=== PATIENT | female | born 1990 | race Caucasian/White ===

== ENCOUNTER 2019-01-14 14:25 | Emergency (ER) | payer MEDICAID, SELFPAY ==
--- NOTE | 2019-01-14 14:23 | W.ED.GENAD ---
Discharge Plan Disposition Patient Disposition: HOME Condition: Fair Discharge Details Chief Complaint: Abd Prob Clinical Impression: Abdominal pain Primary Care Provider: Mark Anthony Avery ED Provider: Nely Gillette Home Meds and New Rx's Prescriptions: New ondansetron 4 mg tablet,disintegrating 4 mg PO QID PRN (Reason: nausea and vomiting) Qty: 10 RF: 0 Continued fluticasone propionate [Flovent HFA] 120 PUFF HFA aerosol inhaler 2 puff Inhalation DAILY RF: 0 levalbuterol tartrate [Xopenex HFA] 200 PUFF HFA aerosol inhaler 2 puff Inhalation Q6H PRN PRNRF: 0 ranitidine HCl [Zantac] 150 MG tablet 150 mg PO DAILY RF: 0 PNV cmb#95-ferrous fumarate-FA [] 1 EACH tablet 1 ea PO DAILY RF: 0 Discharge Instructions Instructions: Abdominal Pain (ED) Additional Instructions: Your evaluation both here and at [facility] are reassuring. You do not have any evidence of ovarian torsion on your exam today or other acute abdominal issues. Please follow-up with primary care next week for reevaluation. May use the Zofran as prescribed to help with any recurrence of your nausea. Tylenol and/or ibuprofen as needed for discomfort. If you develop fever/chills, increased pain, inability stay hydrated or other new/worsening symptoms please seek care urgently once again Referrals: Mark Anthony Avery [Primary Care Provider] - Discharge Data Discharge Date/Time-TO BE ENTERED AT DEPARTURE: 01/14/19 16:25 Medical Decision Making Patient is a 28-year-old female presents today with chief complaint of left lower quadrant pain. She was transferred here from [facility] where she was evaluated in the emergency department. After physical exam and CT, there was concern for possible left ovarian torsion and patient requested transfer here for ultrasound and continued evaluation by [employer] SET UP OPERATOR V[employer]ICAL. Serum test was negative. No leukocytosis. Her CRP was elevated. Her CT is concerning for asymmetric enlarged left kidney. Radiologist is concerned for possible corpus luteum cyst. However, with the patient's discomfort, could not rule out possible torsion. Pain was noted in this area on pelvic exam by physician prompting their evaluation here. They did consult with [employer] OPERATOR [employer], Dr. Machado, who then recommended transfer to our emergency department for transvaginal US which they are unable ot preform at their facility. At this time, patient continues to endorse some left lower quadrant pain. When she was first evaluated in the emergency department, she was endorsing more generalized discomfort, particularly in the upper quadrants. Patient denies any change in bowel or bladder habits. She was also endorsing some right flank pain which she is not endorsing at this time. Patient's medical history is concerning for kidney stones which were not noted on CT today. LMP 12/26/18. Records from [facility] reviewed. CT reviewed by radiologist noting asymmetrically enlarged left ovary. They advised this is likely a corpus luteum cyst has possibly associated with hydrosalpinx. In the setting of pain, advise correlation with transvaginal pelvic ultrasound to exclude possibility of torsion. Exam performed by Dr. Hopson was concerning for tenderness in the left lower quadrant and right lower quadrant. Ears is without findings to suggest infection. She does have trace amount of blood. Negative nitrites negative leukocyte esterase. Lipase is 83. Chemistry, no electrolyte abnormalities. Amylase 31. CRP is 2.6. White count is normal, patient is not anemic. US reviewed by radiologist: Transabdominal and transvaginal exams were performed. The uterus measures 10 x 4.9 x 5.7 cm. A scar is seen anteriorly in the lower uterine segment. There are no fibroids visualized. The endometrial stripe appears homogeneous and measures 14 mm in thickness. The ovaries are normal in size. The left ovary shows a dominant follicle measuring 1.5 cm. There is no free fluid. There is no evidence of ovarian torsion. The kidneys are unremarkable. IMPRESSION: Pelvic ultrasound is within normal limits. Discussed findings with the patient. Advised that there is no evidence of torsion. Discussed findings with Dr. Lennon who was consult for the patient while at [facility]. Patient is taking p.o. intake well at this time. She appears to be resting comfortably. Plan to discharge home with Yudith to help with symptom medic management. Advised that this may be a viral illness but overall, unclear why the patient is having extremely diffuse and migratory abdominal pain for the past 3 days. Advise close follow-up with primary care. She was given strict return precautions and will return with any new or worsening symptoms. All questions and concerns were addressed and she is in agreement this plan. HPI General Mode of arrival: EMS. Date/Time Provider Initiated Documentation: 01/14/19 14:33. Limitations to Documentation: no limitations. Information obtained by: patient, family, RN/MD (report from Dr. Hopson and Dr. Lennon), EMS and RN notes reviewed. History of Present Illness 28 year old F presents to the emergency department with the chief complaint of abdominal pain, described as moderate, Quality is described as stabbing, and is localized to the abdomen. Patient reports no radiation. Patient started experiencing this day(s) and it has been constant. No relieving factors improve symptom(s), No exacerbating factors reported . Patient notes nausea/vomiting (nausea, no vomiting. Patient currently requesting food); denies chest pain, cough, fever/chills, headaches, loss of appetite, rash and shortness of breath. Patient did receive the following treatments prior to arrival, none Related Data Home Medications Medication Instructions Recorded Confirmed fluticasone propionate [Flovent 2 puff INHALATION DAILY inh 03/18/15 07/08/17 HFA] levalbuterol tartrate [Xopenex HFA] 2 puff INHALATION Q6H PRN PRN inh 03/18/15 07/08/17 PNV cmb#95-ferrous fumarate-FA 1 ea PO DAILY 07/08/17 07/08/17 [] ranitidine HCl [Zantac] 150 mg PO DAILY 07/08/17 07/08/17 ondansetron 4 mg PO QID PRN #10 tab 01/14/19 Previous Rx's Medication Instructions Recorded fluticasone propionate [Flovent 2 puff INHALATION DAILY inh 03/18/15 HFA] levalbuterol tartrate [Xopenex HFA] 2 puff INHALATION Q6H PRN PRN inh 03/18/15 ondansetron 4 mg PO QID PRN #10 tab 01/14/19 Allergies Allergy/AdvReac Type Severity Reaction Status Date / Time latex Allergy Intermediate Swelling/Ed Unverified 07/08/17 18:51 tona raspberry Allergy Unknown Anaphylaxsi Unverified 07/08/17 18:51 s No Known Drug Allergies Allergy Unverified 07/08/17 19:22 Review of Systems Constitutional Reports as per HPI, Denies chills, Denies fatigue, Denies fever(s) and Denies headache(s) ENT Denies headache(s) Cardiovascular Reports as per HPI, Denies chest pain and Denies dyspnea Respiratory Reports as per HPI, Denies cough and Denies dyspnea Gastrointestinal Reports as per HPI Musculoskeletal Reports as per HPI and Denies back pain Integumentary/Breasts Reports as per HPI and Denies rash Neurologic Reports as per HPI and Denies headache(s) Endocrine Denies fatigue PFSH Medical History Asthma BMI 36.0-36.9,adult Depression Surgical History Arthroplasty of knee Family History Grandfather Personal history of malignant neoplasm Grandmother Diabetes Social History Smoking/Tobacco Use Status: Never Drug use: Never Do you feel safe at home: Yes Do you feel safe in your relationship?: Yes Exam Const General: cooperative, healthy appearing, comfortable, no acute distress and well developed Nutritional Appearance: well nourished and overweight Orientation: alert and awake HENAK Head: normal to inspection Mouth: moist mucous membranes Resp Effort & Inspection: normal respiratory effort, able to speak in complete sentences and no respiratory distress Auscultation: clear to auscultation bilaterally, no rales, no rhonchi and no wheezes Cardio Rate: regular rate Rhythm: regular rhythm Heart Sounds: S1 normal and S2 normal GI Inspection: normal to inspection and obesity Palpation: soft, no hepatosplenomegaly, not firm, no guarding, not rigid and nontender Percussion: normal to percussion Auscultation: normal bowel sounds Back/Spine/Pelvis Back: no CVA tenderness Skin General skin exam: no rashes or lesions noted Trauma: no lacerations or abrasions Neuro General: alert and awake Cognition: normal cognition Speech: speech normal Gait: normal gait Psych Appearance: grossly normal and well kempt Mental Status: mental status grossly normal Speech and Movement: speech and movement normal
[2019-01-14 14:26] VITALS: BP 126/67; PULSE 85; RESP 14; TEMP 36.6; O2SAT 99
--- NOTE | 2019-01-14 14:35 | DI.US_ITS ---
SYMPTOMS/DIAGNOSIS: LEFT LOWER QUADRANT PAIN, SWELLING LEFT OVARY PELVIC ULTRASOUND: Transabdominal and transvaginal exams were performed. The uterus measures 10 x 4.9 x 5.7 cm. A scar is seen anteriorly in the lower uterine segment. There are no fibroids visualized. The endometrial stripe appears homogeneous and measures 14 mm in thickness. The ovaries are normal in size. The left ovary shows a dominant follicle measuring 1.5 cm. There is no free fluid. There is no evidence of ovarian torsion. The kidneys are unremarkable. IMPRESSION: Pelvic ultrasound is within normal limits.
--- NOTE | 2019-01-14 14:40 | ED.GENADUL_ITS ---
Discharge Plan Disposition Patient Disposition: HOME Condition: Fair Discharge Details Chief Complaint: Abd Prob Clinical Impression: Abdominal pain Primary Care Provider: Mark Anthony Avery ED Provider: Nely Gillette Home Meds and New Rx's Prescriptions: New ondansetron 4 mg tablet,disintegrating 4 mg PO QID PRN (Reason: nausea and vomiting) Qty: 10 RF: 0 Continued fluticasone propionate [Flovent HFA] 120 PUFF HFA aerosol inhaler 2 puff Inhalation DAILY RF: 0 levalbuterol tartrate [Xopenex HFA] 200 PUFF HFA aerosol inhaler 2 puff Inhalation Q6H PRN PRNRF: 0 ranitidine HCl [Zantac] 150 MG tablet 150 mg PO DAILY RF: 0 PNV cmb#95-ferrous fumarate-FA [] 1 EACH tablet 1 ea PO DAILY RF: 0 Discharge Instructions Instructions: Abdominal Pain (ED) Additional Instructions: Your evaluation both here and at [facility] are reassuring. You do not have any evidence of ovarian torsion on your exam today or other acute abdominal issues. Please follow-up with primary care next week for reevaluation. May use the Zofran as prescribed to help with any recurrence of your nausea. Tylenol and/or ibuprofen as needed for discomfort. If you develop fever/chills, increased pain, inability stay hydrated or other new/worsening symptoms please seek care urgently once again Referrals: Mark Anthony Avery [Primary Care Provider] - Discharge Data Discharge Date/Time-TO BE ENTERED AT DEPARTURE: 01/14/19 16:25 Medical Decision Making Patient is a 28-year-old female presents today with chief complaint of left lower quadrant pain. She was transferred here from [facility] where she was evaluated in the emergency department. After physical exam and CT, there was concern for possible left ovarian torsion and patient requested transfer here for ultrasound and continued evaluation by MANAGER QUANTITATIVE. Serum test was negative. No leukocytosis. Her CRP was elevated. Her CT is concerning for asymmetric enlarged left kidney. Radiologist is concerned for possible corpus luteum cyst. However, with the patient's discomfort, could not rule out possible torsion. Pain was noted in this area on pelvic exam by physician prompting their evaluation here. They did consult with MANAGER QUANTITATIVE, Dr. Machado, who then recommended transfer to our emergency department for transvaginal US which they are unable ot preform at their facility. At this time, patient continues to endorse some left lower quadrant pain. When she was first evaluated in the emergency department, she was endorsing more generalized discomfort, particularly in the upper quadrants. Patient denies any change in bowel or bladder habits. She was also endorsing some right flank pain which she is not endorsing at this time. Patient's medical history is concerning for kidney stones which were not noted on CT today. LMP 12/26/18. Records from [facility] reviewed. CT reviewed by radiologist noting asymmetrically enlarged left ovary. They advised this is likely a corpus luteum cyst has possibly associated with hydrosalpinx. In the setting of pain, advise correlation with transvaginal pelvic ultrasound to exclude possibility of torsion. Exam performed by Dr. Hopson was concerning for tenderness in the left lower quadrant and right lower quadrant. Ears is without findings to suggest infection. She does have trace amount of blood. Negative nitrites negative leukocyte esterase. Lipase is 83. Chemistry, no electrolyte abnormalities. Amylase 31. CRP is 2.6. White count is normal, patient is not anemic. US reviewed by radiologist: Transabdominal and transvaginal exams were performed. The uterus measures 10 x 4.9 x 5.7 cm. A scar is seen anteriorly in the lower uterine segment. There are no fibroids visualized. The endometrial stripe appears homogeneous and measures 14 mm in thickness. The ovaries are normal in size. The left ovary shows a dominant follicle measuring 1.5 cm. There is no free fluid. There is no evidence of ovarian torsion. The kidneys are unremarkable. IMPRESSION: Pelvic ultrasound is within normal limits. Discussed findings with the patient. Advised that there is no evidence of torsion. Discussed findings with Dr. Lennon who was consult for the patient while at [facility]. Patient is taking p.o. intake well at this time. She appears to be resting comfortably. Plan to discharge home with Yudith to help with symptom medic management. Advised that this may be a viral illness but overall, unclear why the patient is having extremely diffuse and migratory abdominal pain for the past 3 days. Advise close follow-up with primary care. She was given strict return precautions and will return with any new or worsening symptoms. All questions and concerns were addressed and she is in agreement this plan. HPI General Mode of arrival: EMS . Date/Time Provider Initiated Documentation: 01/14/19 14:33 . Limitations to Documentation: no limitations . Information obtained by: patient, family, RN/MD (report from Dr. Hopson and Dr. Lennon), EMS and RN notes reviewed . History of Present Illness 28 year old F presents to the emergency department with the chief complaint of abdominal pain, described as moderate, Quality is described as stabbing, and is localized to the abdomen. Patient reports no radiation. Patient started experiencing this day(s) and it has been constant. No relieving factors improve symptom(s), No exacerbating factors reported . Patient notes nausea/vomiting (nausea, no vomiting. Patient currently requesting food); denies chest pain, cough, fever/chills, headaches, loss of appetite, rash and shortness of breath. Patient did receive the following treatments prior to arrival, none Related Data Home Medications Medication Instructions Recorded Confirmed fluticasone propionate [Flovent 2 puff INHALATION DAILY inh 03/18/15 07/08/17 HFA] levalbuterol tartrate [Xopenex HFA] 2 puff INHALATION Q6H PRN PRN inh 03/18/15 07/08/17 PNV cmb#95-ferrous fumarate-FA 1 ea PO DAILY 07/08/17 07/08/17 [] ranitidine HCl [Zantac] 150 mg PO DAILY 07/08/17 07/08/17 ondansetron 4 mg PO QID PRN #10 tab 01/14/19 Previous Rx's Medication Instructions Recorded fluticasone propionate [Flovent 2 puff INHALATION DAILY inh 03/18/15 HFA] levalbuterol tartrate [Xopenex HFA] 2 puff INHALATION Q6H PRN PRN inh 03/18/15 ondansetron 4 mg PO QID PRN #10 tab 01/14/19 Allergies Allergy/AdvReac Type Severity Reaction Status Date / Time latex Allergy Intermediate Swelling/Ed Unverified 07/08/17 18:51 tona raspberry Allergy Unknown Anaphylaxsi Unverified 07/08/17 18:51 s No Known Drug Allergies Allergy Unverified 07/08/17 19:22 Review of Systems Constitutional Reports as per HPI, Denies chills, Denies fatigue, Denies fever(s) and Denies headache(s) ENT Denies headache(s) Cardiovascular Reports as per HPI, Denies chest pain and Denies dyspnea Respiratory Reports as per HPI, Denies cough and Denies dyspnea Gastrointestinal Reports as per HPI Musculoskeletal Reports as per HPI and Denies back pain Integumentary/Breasts Reports as per HPI and Denies rash Neurologic Reports as per HPI and Denies headache(s) Endocrine Denies fatigue PFSH Medical History Asthma BMI 36.0-36.9,adult Depression Surgical History Arthroplasty of knee Family History Grandfather Personal history of malignant neoplasm Grandmother Diabetes Social History Smoking/Tobacco Use Status: Never Drug use: Never Do you feel safe at home: Yes Do you feel safe in your relationship?: Yes Exam Const General: cooperative, healthy appearing, comfortable, no acute distress and well developed Nutritional Appearance: well nourished and overweight Orientation: alert and awake HENDE Head: normal to inspection Mouth: moist mucous membranes Resp Effort & Inspection: normal respiratory effort, able to speak in complete sentences and no respiratory distress Auscultation: clear to auscultation bilaterally, no rales, no rhonchi and no wheezes Cardio Rate: regular rate Rhythm: regular rhythm Heart Sounds: S1 normal and S2 normal GI Inspection: normal to inspection and obesity Palpation: soft, no hepatosplenomegaly, not firm, no guarding, not rigid and nontender Percussion: normal to percussion Auscultation: normal bowel sounds Back/Spine/Pelvis Back: no CVA tenderness Skin General skin exam: no rashes or lesions noted Trauma: no lacerations or abrasions Neuro General: alert and awake Cognition: normal cognition Speech: speech normal Gait: normal gait Psych Appearance: grossly normal and well kempt Mental Status: mental status grossly normal Speech and Movement: speech and movement normal
--- NOTE | 2019-01-14 14:43 | NUR.NOTE ---
pt medicaated as per mdo for pain Nursing Note:
--- NOTE | 2019-01-14 14:57 | NUR.NOTE ---
pt to ultrasound Nursing Note:
--- NOTE | 2019-01-14 15:41 | NUR.NOTE ---
pt back from ultrasound Nursing Note:
== END 2019-01-14 16:25 | disposition home or self-care (01) ==
PROVIDERS: Emergency Provider Physician Assistant; PCP Family Medicine
DX: R10.32 Left lower quadrant pain (principal); R11.0 Nausea
CPT/HCPCS: 96374; 99284; 76830; 76856

== ENCOUNTER 2020-05-02 00:44 | Outpatient (CLI) | payer OTHER, MEDICAID, SELFPAY ==
--- NOTE | 2020-05-02 12:55 | DI.RAD_ITS ---
EXAM: XR LUMBAR SPINE AP, LAT CLINICAL HISTORY: DISABILITY DETERMINATION, LOWER BACK SCOLIOSIS. TECHNIQUE: 2D digital imaging was performed. COMPARISON: No exams were available for comparison FINDINGS: BONES: No fracture or destructive lesion. Vertebral bodies are unremarkable. No facet hypertrophy kang ntified. DISKS: Intervertebral disc spaces are maintained. ALIGNMENT: Lumbar spinal alignment is within normal limits. SOFT TISSUE: Normal. IMPRESSION: Unremarkable radiographs of the lumbar spine. DATA REPOSITORY: RADIATION DOSE DELIVERED:
== END 2020-05-02 01:04 ==
PROVIDERS: PCP Family Medicine; Visit Provider Pediatrics Pediatric Rheumatology
DX: Z02.71 Encounter for disability determination (principal)
CPT/HCPCS: 72100

== ENCOUNTER 2021-01-07 21:27 | Emergency (ER) | payer MEDICAID, SELFPAY ==
[2021-01-07] VITALS (19 sets, daily range): BP systolic 103–153; BP diastolic 19–78; PULSE 56–85; RESP 18; TEMP 36.3; O2SAT 95–100
--- NOTE | 2021-01-07 21:52 | ED.GENADUL_ITS ---
Discharge Plan Disposition Patient Disposition: HOME Condition: Stable Discharge Details Clinical Impression: Nausea and vomiting Primary Care Provider: Mark Anthony Avery ED Provider: Gorge Asencio Home Meds and New Rx's Prescriptions: New ondansetron 4 mg tablet,disintegrating 4 mg PO Q8H PRN (Reason: nausea and vomiting) Qty: 30 RF: 0 Continued Flovent HFA 120 PUFF HFA aerosol inhaler 2 puff Inhalation DAILY RF: 0 levalbuterol tartrate [Xopenex HFA] 200 PUFF HFA aerosol inhaler 2 puff Inhalation Q6H PRN PRNRF: 0 venlafaxine [Effexor XR] 150 mg Capsule,Extended Release 24hr 150 mg PO DAILY RF: 0 famotidine [Pepcid] 20 mg Tablet 20 mg PO DAILY RF: 0 hydroxyzine pamoate [Vistaril] 25 mg Capsule 25 mg PO QID RF: 0 Discharge Instructions Instructions: Acute Nausea and Vomiting (ED) Additional Instructions: follow up with your primary care provider if symptoms continue this week if you feel more ill or have severe worsening of pain return to the emergency department Medical Decision Making <Mert Shine MD - Last Filed: 01/07/21 22:32> This is a 30-year-old female presents from home complaining of 2 weeks of intermittent episodes of vomiting. Seem to worsen after eating [place] food and the subsequent leftovers this weekend. She did not share the food with anyone else. Now reports diffuse abdominal pain. She has not noted a fever. She arrives to the ER afebrile, mildly anxious, with an exam that demonstrates mild diffuse tenderness. Differential diagnosis includes colitis, gastroenteritis, biliary colic, dehydration, electrolyte abnormalities. IV access established, screening labs obtained, patient given fluids and antiemetic. Initial labs show white count of 6, hematocrit 41, platelets 182. Chemistries reassuring, note of total bili 1.4, previously elevated at 1.[address] imaging, will try to enhance bowel opacification with oral contrast as colitis is certainly within the differential diagnosis. <Gorge Asencio MD - Last Filed: 01/08/21 00:31> pt remains stable, wasn't tolerating the oral contrast well so sent prior to drinking all the contrast. CT shows no acute findings, ?epiploic appendagitis but has no rlq tenderness. Discussed findings with pt including the splenomegaly and fatty infiltration of the liver and she should follow up with her pcp for this. She has no abdomen tenderness and denies any urinary symptoms so do not feel she requires treatment for uti. She is stable for discharge and is comfortable with this plan, will have her f/u with pcp and return precations given Imaging Data Radiologic Study: Attestation: I personally reviewed and interpreted this imaging study as follows: Imaging: CT Scan Radiologist's impression: IMPRESSION: 1. Mild splenomegaly. 2. Mild fatty infiltration of the liver. 3. The 13 mm rounded fat density focus in the central pelvis lies near the sigmoid colon and may represent mild epiploic appendagitis, however the there is not significant local inflammatory stranding and this may simply represent a small focus of chronic fat necrosis. 4. Additional non-emergent findings detailed above. HPI <Mert Shine MD - Last Filed: 01/07/21 22:32> General Mode of arrival: ambulatory . Date/Time Provider Initiated Documentation: 01/07/21 21:38 . Limitations to Documentation: no limitations . Information obtained by: patient . History of Present Illness 30 year old F presents to the emergency department with the chief complaint of Postprandial vomiting for 2 weeks, described as moderate, and is localized to the abdomen. Patient reports no radiation. Patient started experiencing this da y(s) and it has been intermittent. Eating worsens symptoms . Patient notes loss of appetite and nausea/vomiting; denies fever/chills. Patient did receive the following treatments prior to arrival, none Related Data Home Medications Medication Instructions Recorded Confirmed Flovent HFA 2 puff INHALATION DAILY inh 03/18/15 01/07/21 levalbuterol tartrate [Xopenex HFA] 2 puff INHALATION Q6H PRN PRN inh 03/18/15 01/07/21 famotidine [Pepcid] 20 mg PO DAILY 01/07/21 01/07/21 hydroxyzine pamoate [Vistaril] 25 mg PO QID 01/07/21 01/07/21 venlafaxine [Effexor XR] 150 mg PO DAILY 01/07/21 01/07/21 ondansetron 4 mg PO Q8H PRN #30 tab 01/08/21 Previous Rx's Medication Instructions Recorded Flovent HFA 2 puff INHALATION DAILY inh 03/18/15 levalbuterol tartrate [Xopenex HFA] 2 puff INHALATION Q6H PRN PRN inh 03/18/15 ondansetron 4 mg PO Q8H PRN #30 tab 01/08/21 Allergies Allergy/AdvReac Type Severity Reaction Status Date / Time latex Allergy Intermediate Swelling/Ed Unverified 01/07/21 21:49 tona raspberry Allergy Unknown Anaphylaxsi Unverified 01/07/21 21:49 s No Known Drug Allergies Allergy Unverified 01/07/21 21:49 General Stated Complaint: Nausea/Vomit/Diar CHARITY: 3 Review of Systems <Mert Shine MD - Last Filed: 01/07/21 22:32> Narrative: No fever or chills. Reports to me soft brown formed stools. Last menstrual period approximately 4 weeks ago. 6 systems reviewed and otherwise negative PFSH <Mert Shine MD - Last Filed: 01/07/21 22:32> Medical History Asthma last attack 2011 BMI 36.0-36.9,adult Depression Rx with Wellbutrin 2011 Surgical History Arthroplasty of knee 07/2011 R knee Family History Grandfather Personal history of malignant neoplasm throat CA Grandmother Diabetes Social History Smoking/Tobacco Use Status: Never Smoking risk assessment performed?: Yes Alcohol Intake: never Drug use: Daily Substance use type: marijuana Do you feel safe at home: Yes Do you feel safe in your relationship?: Yes Exam <Mert Shine MD - Last Filed: 01/07/21 22:32> Narrative Exam Narrative: GEN: awake, alert, oriented 3. Pleasant, well groomed, interactive. HEAD: Normocephalic, atraumatic ENT: Mucous membranes moist, oropharynx unremarkable, External ear exam unremarkable EYES: PERRL, EOMI NECK: Full ROM, no LUIS DANIEL, no menigismus CHEST/RESP: Nontender, clear to auscultation bilateral, no wheeze/rhonchi/rales CARDIOVASCULAR: RRR, no murmur, rub silvia. 2+ Rad pulse bilateral ABDOMEN: Soft, mild diffuse tenderness in all 4 quadrants without significant rebound, no mass. +Bowel sounds EXT: Full ROM, no edema, no rash Neuro: Grossly normal neurologic exam, conversant, interactive. Psych: Speech fluent, thoughts congruent, affect anxious Course <Mert Shine MD - Last Filed: 01/07/21 22:32> Vital Signs Vital signs: Vital Signs Temperature 36.3 C L 01/07/21 21:35 Pulse 72 01/07/21 21:35 Respiratory Rate 18 01/07/21 21:35 Blood Pressure 153/78 H 01/07/21 21:35 Pulse Oximetry 98 01/07/21 21:35 Temperature 36.3 C L 01/07/21 21:35 Temperature Source Temporal Artery Scan 01/07/21 21:35 Pulse 72 01/07/21 21:35 Respiratory Rate 18 01/07/21 21:35 Blood Pressure 153/78 H 01/07/21 21:35 Blood Pressure Position Supine 01/07/21 21:35 Pulse Oximetry 98 01/07/21 21:35 Oxygen Delivery Method Room Air 01/07/21 21:35 Oxygen Flow Rate 0 01/07/21 21:35 Pain Level 9 01/07/21 21:35 Lab/Test Results Lab/Test Results: POC- Test(urine) Negative Sign Out <Mert Shine MD - Last Filed: 01/07/21 22:32> Sign Out Data: Sign Out Comment: folowup ct, ? treat uti Last updated by Mert Shine MD at 01/07/21 22:45
[2021-01-07] MEDS: Normal Saline 1,000 ML 1000 ML IV (22:00)
[2021-01-07] MEDS: Ondansetron 4 MG/2 ML VIAL IVP (22:07)
--- NOTE | 2021-01-07 22:15 | DI.CT_ITS ---
Exam(s) CT ABDOMEN PELVIS W EXAM: CT ABDOMEN PELVIS W INDICATION: lower abd pain, vomiting. COMPARISON: No exams were available for comparison TECHNIQUE: FINDINGS: CT examination of the abdomen and pelvis was performed with a bolus infusion of 100 cc of Omnipaque 3 50. Images obtained through the lung bases are unremarkable. The liver shows slightly decreased attenuation consistent with hepatic steatosis. There is a 4 chaz meter right hepatic lobe low-attenuation well-circumscribed mass too small to characterize but likely representing cyst.. Gallbladder and bile ducts are CT normal. Pancreas appears normal. Spleen is mildly enlarged but homogeneous in appearance. Adrenals appear normal. The kidneys are unremarkable with no evidence of hydronephrosis, nephrolithiasis, or renal mass.. Ur inary bladder unremarkable. Abdominal aorta is of normal diameter and no major vascular abnormality is seen. No abdominal wall hernia. No abdominal or pelvic adenopathy. There is probable 2 cm in diameter left ovarian cyst. Appendix is normal. No evidence of diverticulitis or bowel obstruction. Note is made of a 1 cm in diameter fat attenuation rounded radiodensity in the pelvis lying adjacent to the sigmoid, uterus, and small bowel. Question epic plug appendagitis, otherwise likely benign fi nding. No pelvic adenopathy seen. No free fluid. IMPRESSION: mild splenomegaly and hepatic steatosis. Indeterminate likely benign fat attenuation nodule in the pelvis, epiploic appendagitis not excluded. RADIATION DOSE DELIVERED: 1,349.89mGy.cm Total DLP 1,349.89mGy.cm Total DLP RADIATION OPTIMIZATION: All CT scans at this facility use at least one of these dose optimization te chniques: automated exposure control; mA and/or kV adjustment per patient size (includes targeted exa ms where dose is matched to clinical indication); or iterative reconstruction.
[2021-01-07 22:22] LABS: Abs Immature Grans 0.02 10^3/uL (0.0-0.06); Absolute Basophil Count 0.01 10^3/uL (0.0-0.2); Absolute Eosinophil Count 0.09 10^3/uL (0.0-0.7); Absolute Lymphocyte Count 2.03 10^3/uL (1.2-3.4); Absolute Monocyte Count 0.29 10^3/uL (0.1-0.8); Basophils % 0.2; Eosinophils % 1.5; HCT 41.5 % (36.0-46.0); Immature Grans % 0.3; Lymphocytes % 33.1; MCH 32.6 pg (27.0-33.0); MCHC 33.7 % (32.0-36.0); MCV 96.5 fL (80-95); MPV 10.7 fL (8.0-11.0); Monocytes % 4.7; Neutrophils % 60.2; Nucleated RBC 0 %; Platelet Count 182 10^3/uL (130-400); RDW 13.5 % (11.7-14.6); RDW-SD 47.4 fL; WBC 6.14 10^3/uL (4.4-10.8)
[2021-01-07 22:26] LABS: Lipase 54 U/L (73-393)
[2021-01-07 22:26] LABS: Bilirubin Negative (Negative); Blood Negative (Negative); Clarity Sl Cloudy (Clear); Glucose Negative (Negative); Ketones Trace mg/dL (Negative); Leukocyte Esterase Trace (Negative); Nitrite Negative (Negative); Specific Gravity 1.025 (1.005-1.025); pH 7.5 (5-8)
[2021-01-07 22:29] LABS: ALT 32 U/L (14-59); AST 16 U/L (15-37); Alkaline Phosphatase 65 U/L (46-116); Anion Gap 9.4 mmol/L (3-11); BUN 5 mg/dL (7-18); Bilirubin, Total 1.4 mg/dL (0.2-1.0); CO2 27.6 mmol/L (21.0-32.0); CREATININE 0.8 mg/dL (0.55-1.02); Calcium 8.6 mg/dL (8.5-10.1); Chloride 107 mmol/L (98-107); Glucose 93 mg/dL (74-106); Magnesium 1.9 mg/dL (1.8-2.4); Potassium 3.5 mmol/L (3.5-5.1); Sodium 144 mmol/L (136-145); Total Protein 7.2 g/dL (6.4-8.2)
[2021-01-07] MEDS: Omnipaque 350 MG/ML 50 ML BTL PO (22:34)
[2021-01-07 22:42] LABS: Bacteria Few HPF (Negative); Crystals Few Amorphous HPF (Negative); Epithelial Cells Few HPF (Negative); Mucus Moderate (Negative); WBC 20-50 HPF (0-5)
[2021-01-07 22:43] LABS: C & S Indicated? Yes
[2021-01-07] MEDS: Omnipaque 350 MG/ML 100 ML BTL IJ (23:09)
[2021-01-07] MEDS: Normal Saline - Diluent 50 ML VIAL IV (23:09)
[2021-01-08] VITALS (7 sets, daily range): BP systolic 122–145; BP diastolic 64–84; PULSE 63–77; O2SAT 96–100
--- NOTE | 2021-01-08 00:21 | DI.VRAD_ITS ---
PROCEDURE INFORMATION: Exam: CT Abdomen And Pelvis With Contrast Exam date and time: 01/07/2021 10:26 PM Age: 30 years old Clinical indication: Abdominal tenderness and nausea and vomiting; Generalized; Prior surgery; Surgery date: 6+ months; Surgery type: ; Patient HX: Severe abdominal pain and vomiting, for 3 days TECHNIQUE: Imaging protocol: Computed tomography of the abdomen and pelvis with contrast. Total images: 1232 Radiation optimization: All CT scans at this facility use at least one of these dose optimization techniques: automated exposure control; mA and/or kV adjustment per patient size (includes targeted exams where dose is matched to clinical indication); or iterative reconstruction. Contrast material: OMNIPAQUE 350; Contrast volume: 100 ml; Contrast route: INTRAVENOUS (IV); COMPARISON: US PELVIS TRANSVAGINAL 01/14/2019 3:09 PM FINDINGS: Lungs: Visualized lung bases are clear. Heart: Heart size normal. Mediastinal space: The visualized distal esophagus is normal. Liver: Normal contour. Well-circumscribed low-density lesion in the right hepatic lobe measuring 4 mm in diameter, demonstrating benign CT features most consistent with hepatic cyst. No further imaging characterization/followup is required based on current consensus criteria. No intrahepatic biliary ductal dilatation. Mild fatty infiltration of the liver. Gallbladder and bile ducts: Normal. No calcified stones. No ductal dilation. Pancreas: Normal. No inflammatory changes or ductal dilation. Spleen: Splenomegaly measuring 14.8 cm craniocaudal. Adrenal glands: Normal. No adrenal mass. Kidneys and ureters: No acute abnormalities. No hydronephrosis or hydroureter. No urinary tract stones are identified. Stomach and bowel: The stomach is unremarkable. The small bowel is nondilated with no gross abnormality. No acute colonic abnormalities. Appendix: The appendix is normal in caliber and demonstrates no evidence of appendicitis. Intraperitoneal space: Minimal amount of intrapelvic free fluid, within physiologic range for a young woman. No free air. There is a 13 x 6 mm fat density lesion in the central pelvis which lies near the sigmoid colon, adjacent small bowel, and posterior margin of the uterus. No significant surrounding inflammatory changes. This could represent mild epiploic appendagitis or possibly a small area of chronic fat necrosis. Vasculature: No acute process. No abdominal aortic aneurysm. Lymph nodes: No adenopathy. Urinary bladder: Unremarkable as visualized. Reproductive: 2.2 cm pedunculated simple left ovarian follicle versus para ovarian cyst, which does not require further evaluation. The uterus and right ovary are unremarkable. Bones/joints: No acute osseous abnormalities. Soft tissues: Very small fatty umbilical hernia . No evidence of associated bowel herniation or strangulation. IMPRESSION: 1. Mild splenomegaly. 2. Mild fatty infiltration of the liver. 3. The 13 mm rounded fat density focus in the central pelvis lies near the sigmoid colon and may represent mild epiploic appendagitis, however the there is not significant local inflammatory stranding and this may simply represent a small focus of chronic fat necrosis. 4. Additional non-emergent findings detailed above. Dictated and Authenticated by: Navi Mendoza MD. Ordering:WHITNEY Pain[employer] MD
[2021-01-08] MEDS: Ondansetron O.D.T. 4 MG TABEF, 3 TABS/BTL PO (00:40)
== END 2021-01-08 00:50 | disposition home or self-care (01) ==
PROVIDERS: Emergency Medicine; Emergency Provider Emergency Medicine; PCP Family Medicine
DX: R11.2 Nausea with vomiting, unspecified (principal)
CPT/HCPCS: 36415; 80053; 81025; 83690; 96361; 96374; 96375; 99285; 74177; 81003; 81015; 83735; 85025; 87086; 99284; J2405; J3490; Q9967

== ENCOUNTER 2021-02-12 21:58 | Emergency (ER) | payer MEDICAID, SELFPAY ==
[2021-02-12] VITALS (8 sets, daily range): BP systolic 108–159; BP diastolic 59–109; PULSE 73–98; RESP 16; TEMP 36.5; O2SAT 97–100
[2021-02-12 22:11] LABS: Bilirubin Small (Negative); Blood Negative (Negative); Clarity Sl Cloudy (Clear); Glucose Negative (Negative); Ketones 15 mg/dL (Negative); Leukocyte Esterase Negative (Negative); Nitrite Negative (Negative); Specific Gravity 1.025 (1.005-1.025)
[2021-02-12 22:20] LABS: Bacteria Few HPF (Negative); C & S Indicated? No/Sq. Contamination; Crystals Negative HPF (Negative); Epithelial Cells Many HPF (Negative); Mucus Negative (Negative); RBC 0-2 HPF (0-2)
--- NOTE | 2021-02-12 22:20 | ED.GENADUL_ITS ---
Discharge Plan Disposition Patient Disposition: HOME Condition: Stable Discharge Details Clinical Impression: Nausea and vomiting, Abdominal pain Primary Care Provider: Mark Anthony Avery ED Provider: Gorge Asencio Home Meds and New Rx's Prescriptions: New prochlorperazine maleate [Compazine] 10 mg tablet 10 mg PO TID PRN (Reason: nausea and vomiting) Qty: 30 RF: 0 Continued Flovent HFA 120 PUFF HFA aerosol inhaler 2 puff Inhalation DAILY RF: 0 levalbuterol tartrate [Xopenex HFA] 200 PUFF HFA aerosol inhaler 2 puff Inhalation Q6H PRN PRNRF: 0 trazodone 50 mg tablet 50 mg PO RF: 0 venlafaxine [Effexor XR] 150 mg Capsule,Extended Release 24hr 150 mg PO DAILY RF: 0 famotidine [Pepcid] 20 mg Tablet 20 mg PO DAILY RF: 0 hydroxyzine pamoate [Vistaril] 25 mg Capsule 25 mg PO QID RF: 0 Discontinued ondansetron 4 mg tablet,disintegrating 4 mg PO Q8H PRN (Reason: nausea and vomiting) Qty: 30 RF: 0 Discharge Instructions Instructions: Abdominal Pain (ED) Additional Instructions: your blood work and cat scan did not show any concerning findings at this time follow up with your primary care provider and if symptoms continue you may need to see a through operator return to the emergency department if you feel more ill, have persistent vomit o r fevers return tot he emergency department Medical Decision Making 30 yo female comes in with 1 month of intermittent abdomen pain, n/v without an obvious trigger for her symptoms. She was seen in the ED several weeks ago with ct showing possible mesenteric adenitis and otherwise unremarkable work up so was discharged. She followed up with her pcp today as she intermittently has had pain and was told it may be her gallbladder and is supposed to have an outpatient u/s. She states since the appointment she has had right sided abdomen pain and n/v despite zofran so came here. She appears anxious on exam otherwise stable. She denies chest pain, fevers, chills, dyspnea. She has no left sided abdomen pain but is tender without guarding in the right lower abdomen and right upper abdomen, negative gillis's sign. Concern for cholecystitis, pancreatitis, and less likely appendicitis. Will obtain labs, treat her symptoms and try bedside u/s to evaluate the gallbladder. I did a bedside u/s and gallbladder appeared normal without wall thickening or pericholecystic fluid. She still has nausea and tenderness and after discussion with her of risks/benefits of repeat ct she would like to proceed with ct ct and labs unremarkable and she feels significantly better, tolerating po and has no abdominal tenderness on exam. She is stable for d/c and is comfortable with this, will f/u with pcp and return precautions given Differential Diagnosis Differential Diagnosis: irritable bowel, cholecystitis, pancreatitis Medical Records Medical records reviewed: Yes I reviewed the patient's medical records. Imaging Data Radiologic Study: Attestation: I personally reviewed and interpreted this imaging study as follows: Imaging: CT Scan Radiologist's impression: no acute findings HPI General Mode of arrival: ambulatory . Date/Time Provider Initiated Documentation: 02/12/21 21:59 . Limitations to Documentation: no limitations . Information obtained by: patient . History of Present Illness 30 year old F presents to the emergency department with the chief complaint of abdomen pain, described as moderate, Quality is described as stabbing and aching, and is localized to the abdomen. Patient reports no radiation. Patient started experiencing this month(s) (1) and it has been constant. No relieving factors improve symptom(s), No exacerbating factors reported . Patient notes nausea/vomiting. Related Data Home Medications Medication Instructions Recorded Confirmed Flovent HFA 2 puff INHALATION DAILY inh 03/18/15 02/12/21 levalbuterol tartrate [Xopenex HFA] 2 puff INHALATION Q6H PRN PRN inh 03/18/15 02/12/21 famotidine [Pepcid] 20 mg PO DAILY 01/07/21 02/12/21 hydroxyzine pamoate [Vistaril] 25 mg PO QID 01/07/21 02/12/21 venlafaxine [Effexor XR] 150 mg PO DAILY 01/07/21 02/12/21 trazodone 50 mg PO 02/12/21 02/12/21 prochlorperazine maleate 10 mg PO TID PRN #30 tab 02/13/21 [Compazine] Previous Rx's Medication Instructions Recorded Flovent HFA 2 puff INHALATION DAILY inh 03/18/15 levalbuterol tartrate [Xopenex HFA] 2 puff INHALATION Q6H PRN PRN inh 03/18/15 prochlorperazine maleate 10 mg PO TID PRN #30 tab 02/13/21 [Compazine] Allergies Allergy/AdvReac Type Severity Reaction Status Date / Time latex Allergy Intermediate Swelling/Ed Unverified 02/12/21 22:11 tona raspberry Allergy Unknown Anaphylaxsi Unverified 02/12/21 22:11 s No Known Drug Allergies Allergy Unverified 02/12/21 22:11 General Stated Complaint: Abd Prob CHARITY: 3 Review of Systems All systems reviewed & are unremarkable except as noted in HPI and below Constitutional Constitutional: Denies chills, Denies fever(s) and Denies weakness Cardiovascular Cardiovascular: Denies chest pain and Denies dyspnea Respiratory Respiratory: Denies cough and Denies dyspnea Musculoskeletal Musculoskeletal: Denies joint swelling Neurologic Neurologic: Denies weakness PFSH Medical History Asthma last attack 2011 BMI 36.0-36.9,adult Depression Rx with Wellbutrin 2011 Surgical History Arthroplasty of knee 07/2011 R knee Family History Grandfather Personal history of malignant neoplasm throat CA Grandmother Diabetes Social History Smoking/Tobacco Use Status: Never Smoking risk assessment performed?: Yes Alcohol Intake: never Drug use: Daily Substance use type: marijuana Do you feel safe at home: Yes Do you feel safe in your relationship?: Yes Exam Const General: no acute distress Orientation: alert HENKY Head: normal to inspection Ears: external ears normal General nose exam: external nose normal Mouth: moist mucous membranes Eyes General: appearance normal, both eyes and all related structures Neck Neck: normal visual inspection Resp Effort & Inspection: normal respiratory effort and able to speak in complete sentences Cardio Rate: regular rate GI Palpation: soft, not rigid and tender Skin General skin exam: no rashes or lesions noted Neuro General: patient alert and patient oriented x3 Extrem General: normal to inspection Psych Mental Status: mental status grossly normal Course Vital Signs Vital signs: Vital Signs Temperature 36.5 C 02/12/21 22:02 Pulse 98 H 02/12/21 22:02 Respiratory Rate 16 02/12/21 22:02 Blood Pressure 159/109 H 02/12/21 22:02 Pulse Oximetry 100 02/12/21 22:02 Temperature 36.5 C 02/12/21 22:02 Temperature Source Temporal Artery Scan 02/12/21 22:02 Pulse 98 H 02/12/21 22:02 Respiratory Rate 16 02/12/21 22:02 Respiratory Effort Non-Labored 02/12/21 22:09 Blood Pressure 159/109 H 02/12/21 22:02 Blood Pressure Position Standing 02/12/21 22:02 Pulse Oximetry 100 02/12/21 22:02 Oxygen Delivery Method Room Air 02/12/21 22:02 Oxygen Flow Rate 0 02/12/21 22:02 Pain Level 10 02/12/21 22:12 Lab/Test Results Lab/Test Results: Laboratory Tests Range/Units 02/12/21 22:05 Urine Color (Yellow) Yellow Urine Clarity (Clear) Sl Cloudy Urine pH (5-8) 7.0 Ur Specific [place] (1.005-1.025) 1.025 Urine Protein (Negative) mg/dL Trace H Urine Ketones (Negative) mg/dL 15 H Urine Blood (Negative) Negative Urine Nitrite (Negative) Negative Urine Bilirubin (Negative) Small H Urine Urobilinogen (Up TO 0.2) EU/dL 2.0 H Ur Leukocyte Esterase (Negative) Negative Urine RBC (0-2) HPF 0-2 Urine WBC (0-5) HPF 10-20 H Ur Epithelial Cells (Negative) HPF Many Urine Crystals (Negative) HPF Negative Urine Bacteria (Negative) HPF Few Urine Mucus (Negative) Negative Ur Culture Indicated? No/Sq. Contamination Urine Glucose (Negative) mg/dL Negative POC- Test(urine) Negative
[2021-02-12] MEDS: Ketorolac 15 MG/ML VIAL IVP (22:36)
[2021-02-12] MEDS: Normal Saline 1,000 ML 1000 ML IV (22:36)
[2021-02-12] MEDS: Prochlorperazine 10 MG/2 ML VIAL IVP (22:39)
[2021-02-12 22:47] LABS: Abs Immature Grans 0.04 10^3/uL (0.0-0.06); Absolute Basophil Count 0.01 10^3/uL (0.0-0.2); Absolute Eosinophil Count 0.06 10^3/uL (0.0-0.7); Absolute Lymphocyte Count 2.15 10^3/uL (1.2-3.4); Absolute Monocyte Count 0.38 10^3/uL (0.1-0.8); Absolute Neutrophil Count 5.15 10^3/uL (1.2-6.7); Basophils % 0.1; Eosinophils % 0.8; HCT 38.4 % (36.0-46.0); HGB 12.6 g/dL (11.2-15.7); Immature Grans % 0.5; Lymphocytes % 27.6; MCHC 32.8 % (32.0-36.0); MCV 97.5 fL (80-95); MPV 10.5 fL (8.0-11.0); Monocytes % 4.9; Neutrophils % 66.1; Nucleated RBC 0 %; Platelet Count 196 10^3/uL (130-400); RBC 3.94 10^6/uL (3.93-5.22); RDW-SD 49.3 fL; WBC 7.79 10^3/uL (4.4-10.8)
--- NOTE | 2021-02-12 22:52 | DI.CT_ITS ---
Exam(s) CT ABDOMEN PELVIS W EXAM: CT ABDOMEN PELVIS W CLINICAL HISTORY: right sided abdomen pain. TECHNIQUE: Imaging Protocol: Axial computed tomography images with coronal and sagittal reformatted images were created and reviewed CONTRAST MATERIAL: Intravenous: Omnipaque 100cc Oral: None COMPARISON: CT CT ABDOMEN PELVIS W from 01/07/2021 FINDINGS: VISUALIZED LUNG BASES: No nodules nor pleural effusions evident. ABDOMEN: There is no ascites. LIVER: Hepatic steatosis again noted. Also again noted is a small hypodensity in the right hepatic l obe measuring 3-4 millimeters which is benign appearance and probably represents small cyst or warren ioma. GALLBLADDER/BILIARY: Contracted and therefore difficult to evaluate. CBD is not dilated. PANCREAS: No evidence of pancreatic mass nor dilatation of the pancreatic duct. SPLEEN: Mild splenomegaly again noted. Splenic and portal veins are patent. ADRENALS: There are no significant adrenal masses. KIDNEYS:No cysts evident. No solid renal masses. No calculi nor hydronephrosis.. ABDOMINAL AORTA: Abdominal aorta is not enlarged. LYMPH NODES:There is no retroperitineal nor paraaortic adenopathy. ABDOMINAL WALL: No evidence of significant anterior abdominal wall hernia. GI: There is no evidence of bowel obstruction, free air, nor abscess. PELVIS: GI: No evidence of appendicitis.No evidence of sigmoid diverticulitis. LYMPH NODES: There is no intrapelvic nor inguinal adenopathy. REPRODUCTIVE: There is a 2.4 x 1.4 cm cyst in the posterior right adnexa just above the right ovary. A similar size cyst is seen in the upper left adnexal left ovary. This left ovarian cyst is similar to the prior study but the right ovarian cyst was not previously present. URINARY BLADDER: No calculi nor obvious masses evident OSSEOUS: No significant osseous lesions. IMPRESSION: 1. Compared to the prior CT scan of 01/07/2021 there is again noted hepatic steatosis and mild spleno megaly. There is no ascites. Tiny unchanged benign-appearing hypodensity in the liver is probably a small hemangioma. 2. Bilateral ovarian adnexal cysts as described above. Left cyst is unchanged from the prior study. The cyst in the posterior right adnexal just above the right ovary was not previously present. This measures 24 x 14 millimeters. There is no free fluid. Can be followed with ultrasound. RADIATION DOSE DELIVERED: 1,388.01mGy.cm Total DLP DATA REPOSITORY: All CT scans at this facility are submitted to the National Radiology Data Registry (NRDR) Dose Index Registry (DIR) with the [employer] ([employer]). RADIATION OPTIMIZATION: All CT scans at this facility use at least one of these dose optimization te chniques: automated exposure control; mA and/or kV adjustment per patient size (includes targeted exa ms where dose is matched to clinical indication); or iterative reconstruction.
[2021-02-12] MEDS: Omnipaque 350 MG/ML 100 ML BTL IJ (23:01)
[2021-02-12] MEDS: Normal Saline - Diluent 50 ML VIAL IV (23:07)
[2021-02-12 23:48] LABS: ALT 27 U/L (14-59); AST 16 U/L (15-37); Alkaline Phosphatase 69 U/L (46-116); BUN 8 mg/dL (7-18); Bilirubin, Direct 0.2 mg/dL (0.0-0.2); Bilirubin, Total 1.3 mg/dL (0.2-1.0); CREATININE 0.8 mg/dL (0.55-1.02); Calcium 8.9 mg/dL (8.5-10.1); Chloride 107 mmol/L (98-107); Glucose 103 mg/dL (74-106); Lipase 60 U/L (73-393); Magnesium 1.9 mg/dL (1.8-2.4); Sodium 144 mmol/L (136-145); Total Protein 7.3 g/dL (6.4-8.2)
--- NOTE | 2021-02-13 00:01 | NUR.NOTE ---
Patient able to sit upright on cart. Rates pain 3/10, much improved. IV fluids infusing. Lights off for comfort. Call light in reach. Nursing Note:
--- NOTE | 2021-02-13 00:11 | DI.VRAD_ITS ---
PROCEDURE INFORMATION: Exam: CT Abdomen And Pelvis With Contrast Exam date and time: 02/12/2021 11:09 PM Age: 30 years old Clinical indication: Other: Right sided abdomen pain; Prior surgery; Surgery date: 6+ months; Surgery type: TECHNIQUE: Imaging protocol: Computed tomography of the abdomen and pelvis with contrast. Radiation optimization: All CT scans at this facility use at least one of these dose optimization techniques: automated exposure control; mA and/or kV adjustment per patient size (includes targeted exams where dose is matched to clinical indication); or iterative reconstruction. Contrast material: OMNIPAQUE 350; Contrast volume: 100 ml; Contrast route: INTRAVENOUS (IV); COMPARISON: CT ABDOMEN PELVIS W 01/07/2021 11:15 PM FINDINGS: Lungs: The visualized portions of the lung bases are normal. Liver: Normal. No mass. Gallbladder and bile ducts: Normal. No calcified stones. No ductal dilation. Pancreas: Normal. No ductal dilation. Spleen: Stable mild splenomegaly. Adrenal glands: Normal. No mass. Kidneys and ureters: Normal. No hydronephrosis. Stomach and bowel: Stable small fat density structure adjacent to the sigmoid colon without significant inflammatory changes, most likely chronic fat necrosis. Appendix: No evidence of appendicitis. Intraperitoneal space: Unremarkable. No free air. No significant fluid collection. Vasculature: Unremarkable. No abdominal aortic aneurysm. Lymph nodes: Unremarkable. No enlarged lymph nodes. Urinary bladder: Unremarkable as visualized. Reproductive: Stable bilateral small adnexal cysts adjacent to the ovaries. Bones/joints: Unremarkable. No acute fracture. Soft tissues: Unremarkable. IMPRESSION: 1. No evidence of acute abdominal or pelvic process. 2. Stable mild splenomegaly. Dictated and Authenticated by: Gene Hill MD. Ordering:MARICEL Pennington MD
[2021-02-13 00:43] VITALS: BP 108/59; PULSE 73; RESP 16; TEMP 36.5; O2SAT 98
== END 2021-02-13 00:44 | disposition home or self-care (01) ==
PROVIDERS: Emergency Provider Emergency Medicine; PCP Family Medicine
DX: R11.2 Nausea with vomiting, unspecified (principal); R10.9 Unspecified abdominal pain
CPT/HCPCS: 36415; 80053; 81025; 83690; 96361; 96374; 96375; 99285; 74177; 81003; 81015; 82248; 83735; 85025; 99284; J0780; J1885; J3490

== ENCOUNTER 2021-06-09 16:09 | Emergency (ER) | payer MEDICAID, SELFPAY ==
[2021-06-09 16:18] VITALS: BP 136/89; PULSE 91; RESP 16; TEMP 36.8; O2SAT 97
--- NOTE | 2021-06-09 16:33 | ED.GENADUL_ITS ---
Discharge Plan Disposition Patient Disposition: HOME Condition: Good Discharge Details Clinical Impression: Acute streptococcal pharyngitis Primary Care Provider: Mark Anthony Avery ED Provider: Gloria Husain Home Meds and New Rx's Prescriptions: New amoxicillin 500 mg tablet 1,000 mg PO DAILY Qty: 9 RF: 0 Continued lamotrigine [Lamictal] 100 mg tablet 100 mg PO DAILY RF: 0 Flovent HFA 120 PUFF HFA aerosol inhaler 2 puff Inhalation DAILY RF: 0 levalbuterol tartrate [Xopenex HFA] 200 PUFF HFA aerosol inhaler 2 puff Inhalation Q6H PRN PRNRF: 0 trazodone 50 mg tablet 50 mg PO RF: 0 prochlorperazine maleate [Compazine] 10 mg tablet 10 mg PO TID PRN (Reason: nausea and vomiting) Qty: 30 RF: 0 lorazepam 0.5 mg tablet 0.5 mg PO PRNRF: 0 famotidine [Pepcid] 20 mg Tablet 20 mg PO DAILY RF: 0 Discharge Instructions Instructions: Pharyngitis (ED) Additional Instructions: Yogurt daily while on antibiotics Follow-up ENT doctor listed Take Tylenol 650 mg every 4 hours for pain control Take the antibiotic once daily, if it upsets your stomach taking a larger dose, you may take 500 mg or 1 tablet twice daily Referrals: Mark Anthony Avery [Primary Care Provider] - Bryan Bartholomew MD [ [facility] STAFF PHYSICIAN] - Discharge Data Discharge Date/Time-TO BE ENTERED AT DEPARTURE: 06/09/21 16:57 Medical Decision Making Patient appears well, she is positive for strep, she will be treated with amoxicillin and single dose of Decadron for pain control Referral to ENT as she is been on numerous antibiotics for strep diagnosis She is tolerating secretions and overall is well in appearance Return precautions discussed and patient expressed understanding Medical Records Medical records reviewed: Yes I reviewed the patient's medical records. Lab Data Lab results reviewed: Yes I reviewed the patient's lab results. HPI General Mode of arrival: ambulatory . Date/Time Provider Initiated Documentation: 06/09/21 16:11 . Limitations to Documentation: no limitations . Information obtained by: patient . HPI Narrative: This 30-year-old female presents with reports of sore throat for the past 24 hours states she has pain with swallowing. Denies any stiff neck or fever. Denies chance of . Pain exacerbated with swallowing. Denies known sick contacts. Denies any upper respiratory Related Data Home Medications Medication Instructions Recorded Confirmed Flovent HFA 2 puff INHALATION DAILY inh 03/18/15 06/09/21 levalbuterol tartrate [Xopenex HFA] 2 puff INHALATION Q6H PRN PRN inh 03/18/15 06/09/21 famotidine [Pepcid] 20 mg PO DAILY 01/07/21 06/09/21 trazodone 50 mg PO 02/12/21 05/14/21 prochlorperazine maleate 10 mg PO TID PRN #30 tab 02/13/21 06/09/21 [Compazine] lamotrigine 100 mg tablet 100 mg PO DAILY 05/14/21 06/09/21 amoxicillin 1,000 mg PO DAILY #9 tab 06/09/21 lorazepam 0.5 mg PO PRN 06/09/21 Previous Rx's Medication Instructions Recorded Flovent HFA 2 puff INHALATION DAILY inh 03/18/15 levalbuterol tartrate [Xopenex HFA] 2 puff INHALATION Q6H PRN PRN inh 03/18/15 prochlorperazine maleate 10 mg PO TID PRN #30 tab 02/13/21 [Compazine] amoxicillin 1,000 mg PO DAILY #9 tab 06/09/21 Allergies Allergy/AdvReac Type Severity Reaction Status Date / Time latex Allergy Intermediate Swelling/Ed Unverified 06/09/21 16:22 tona raspberry Allergy Unknown Anaphylaxsi Unverified 06/09/21 16:22 s No Known Drug Allergies Allergy Unverified 06/09/21 16:22 pollen extracts AdvReac Intermediate Verified 06/09/21 16:22 General Stated Complaint: Sorethroat CHARITY: 4 Review of Systems All systems reviewed & are unremarkable except as noted in HPI and below PFSH Medical History Asthma last attack 2011 BMI 36.0-36.9,adult Depression Rx with Wellbutrin 2011 Surgical History Arthroplasty of knee 07/2011 R knee Family History Grandfather Personal history of malignant neoplasm throat CA Grandmother Diabetes Social History Smoking/Tobacco Use Status: Former Tobacco Use Smoking risk assessment performed?: Yes Alcohol Intake: never Drug use: Occasionally Substance use type: marijuana Current gender identity: female Do you feel safe at home: Yes Do you feel safe in your relationship?: Yes Exam Const General: cooperative, comfortable and no acute distress HENMT Other: Uvula midline, no tonsillar exudate, no petechiae, no trismus, no evidence of retropharyngeal or peritonsillar abscess, no submandibular lymphadenopathy Neck Other: No stridor or meningismus Course Vital Signs Vital signs: Vital Signs Temperature 36.8 C 06/09/21 16:18 Pulse 91 H 06/09/21 16:18 Respiratory Rate 16 06/09/21 16:18 Blood Pressure 136/89 06/09/21 16:18 Pulse Oximetry 97 06/09/21 16:18 Temperature 36.8 C 06/09/21 16:18 Temperature Source Skin 06/09/21 16:18 Pulse 91 H 06/09/21 16:18 Respiratory Rate 16 06/09/21 16:18 Respiratory Effort 06/09/21 16:18 Blood Pressure 136/89 06/09/21 16:18 Blood Pressure Position Sitting 06/09/21 16:18 Pulse Oximetry 97 06/09/21 16:18 Pain Level 8 06/09/21 16:18 Lab/Test Results Lab/Test Results: POC Strep Test-VAMSHI(Rapid) Start: 06/09/21 16:12 Freq: .Rapid Strep Test Status: Active Protocol: Document 06/09/21 16:25 NB (Rec: 06/09/21 16:25 [id number]) Strep test-VAMSHI(Rapid)-POC POC-Strep test-VAMSHI (Rapid) Positive POC-Strep test-VAMSHI (Rapid) Positive
[2021-06-09] MEDS: Dexamethasone 10 MG/ML VIAL PO (16:55)
[2021-06-09] MEDS: Amoxicillin 500 MG CAP 1000 MG PO (16:55)
== END 2021-06-09 16:57 | disposition home or self-care (01) ==
PROVIDERS: Emergency Provider Physician Assistant; PCP Family Medicine
DX: J02.0 Streptococcal pharyngitis (principal); B95.5 Unspecified streptococcus as the cause of diseases classified elsewhere; Z87.891 Personal history of nicotine dependence
CPT/HCPCS: 87880; 99283; J1100

== ENCOUNTER 2021-07-05 11:45 | Emergency (ER) | payer MEDICAID, SELFPAY ==
--- OUTSIDE RECORDS SUMMARY | 2021-07-05 12:06 | XMS_ITS ---
:1990 Author Care Team Providers Name Role Phone DR. IRLANDA PEARL Primary Care Provider [phone] DR. IRLANDA PEARL Referring Provider [phone] IRLANDA PEARL Primary Care Provider [phone] Allergies Code Code System Name Reaction Severity Status Onset 5554883 RxNorm Latex Edema ? Active ? Hives ? Active ? Itching ? Active ? [id number] RxNorm Raspberry Anaphylaxis ? Active ? NKDA ? Medications Name Status Start Date Stop Date ? ? albuterol sulf 90 mcg/actuation breath activated powder inhaler, sensor Active ? Not available Inhale 2 puffs every 4 hours by inhalation route. famotidine 20 mg tablet Active ? Not avai lable Take 1 tablet every day by oral route as needed. Flovent Diskus Active 01/14/2019 Not available hydroxyzine HCl Completed 01/14/2019 11/19/2020 hydroxyzine HCl 50 mg tablet Active ? Not available Take 1 tablet 4 times a day by oral route. ibuprofen 600 mg tablet Active 01/14/2019 Not avai lable Take 1 tablet 3 times a day by oral route. ketorolac 10 mg tablet Completed ? 9 Take 1 tablet every 6 hours by oral route. omeprazole 20 mg tablet,delayed release Active ? Not available Take by oral route. prednisone 20 mg tablet Completed ? 09/18/19 19 Take 2 tablets every day by oral route for 4 days. ProAir HFA 90 mcg/actuation aerosol inhaler Active 11/2018 Not available Inhale 2 puffs every 4 hours by inhalation route. trazodone 50 mg tablet Active ? Not avail able Take 1 tablet every day by oral route as needed. venlafaxine 75 mg tablet Active ? Not ana ilable Take 1 tablet every day by oral route. Vitamin D Active 01/14/2019 Not available Zofran ODT 4 mg disintegrating tablet Completed ? 09/17/2018 Take 1 tablet every 8 hours by oral route for 3 days. Zoloft 100 mg tablet Active 01/14/2019 Not availab le Take 1 tablet every day by oral route. Problems Name Status Onset Date Source ? Chronic Pain Active 09/17/2018 ? Mild Intermittent Asthma Active 09/17/2018 ? Gastroesophageal Reflux Disease Active 09/17/2018 ? Missed Period Active 09/17/2018 ? 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 Mixed Anxiety and Depressive Disorder Active 11/19/2020 ? Asthma Active 11/19/2020 ? Pain in Right Foot Active 11/19/2020 ? Notes: dyshidrotic eczema Procedures Date Name Performed by ? 06/12/2017 Section Information not [facility] lable 06/12/2017 Tubal Ligation Information not [facility] lable 07/13/2011 Knee Surgery Information not [facility] lab 09/20/2018 XR, Knee, 3 View [facility] adiology [address] [place] [phone] (Work Place) 09/20/2018 CT, Lower Extremity, W/o Contrast [facility] Radiology [address] [place] [phone] (Work Place) 11/20/2020 XR, Hip, Unilateral, 2 or 3 View [facility] Radiology [address] [place] [address] [phone] (Work Place) 11/20/2020 XR, Knee, 4 or More View [facility] l Radiology [address] [place] [phone] (Work Place) 12/03/2020 MRI, Lower Extremity Joint(s), W/o [facility] Radiology Contrast [address], [place] [id number] (Work Place) 12/26/2020 MRI, Lower Extremity Joint(s), W/ [facility] Radiology Contrast [address] [place] [phone] (Work Place) Results Lab Results Date Name Specimen Result Interpretation Description Value Range Status Address ? 01/14/2019 Urinalysis, U Normal Urbc 0-2 /hpf 0-2 /hpf Claudia l [facility] Microscopic Hospi ravi Laboratory & Pathology: [address] [place] [address] ? ? U ABNORMAL Sqep 2-5 /hpf negative Final [facility] age /hpf [facility] Laboratory & Pathology: [address] [place] [address] ? ? U ? Culture no ? Final [facility] Laboratory & Pathology: [address] [place] [address] 01/14/2019 Urinalysis, U Normal Color yellow yellow Final [facility] Dipstick, Hospita l Reflex Micro Labo ratory & Pathology: [address] [place] [address] ? ? U Normal Letty clear clear Final [facility] Laboratory & Pathology: [address] [place] [address] ? ? U Normal Spgr 1.015 1.015-1.[address] Laboratory & Pathology: [address] [place] [address] ? ? U ? Ph 7.0 ? Final [facility] Laboratory & Pathology: [address] [place] [address] ? ? U Normal Gluc negative negative Final [facility] Laboratory & Pathology: [address] [place] [address] ? ? U Normal Bilb negative negative Final [facility] Laboratory & Pathology: [address] [place] [address] ? ? U Normal Ket negative negative Final [facility] Laboratory & Pathology: [address] [place] [address] ? ? U ABNORMAL Bld trace-int negative Final [facility] Laboratory & Pathology: [address] [place] [address] ? ? U Normal Prot negative negative Final [facility] Laboratory & Pathology: [address] [place] [address] ? ? U Normal Uro 0.2 0.2 Final [facility] E.U./dL E.U./dL [facility] Laboratory & Pathology: [address] [place] [address] ? ? U Normal Nit negative negative Final [facility] Laboratory & Pathology: [address] [place] [address] ? ? U Normal Leuko negative negative Final [facility] Laboratory & Pathology: [address] [place] [address] 01/14/2019 CMP, Serum P Normal Na 141 mEq/L 136-145 Final [facility] or [facility]Eq/L [facility] Pathology: [address] [place] [address] ? ? P Normal K 4.0 mEq/L 3.5-5.1 Final [facility] mEq/L [facility] Laboratory & Pathology: [address] [place] [address] ? ? P Normal Cl 105 mEq/L 98-107 Final [facility] mEq/L [facility] Laboratory & Pathology: [address] [place] [address] ? ? P Normal Co2 28 mEq/L 21-32 Final [facility] mEq/L [facility] Laboratory & Pathology: [address] [place] [address] ? ? P ? Agap 12.6 ? Corrected [facility] calculati Hospita l on Laboratory & Pathology: [address] [place] [address] ? ? P Normal Glu 98.0 70.0-100. Final [facility] mg/dL 0 mg/dL [facility] Laboratory & Pathology: [address] [place] [address] ? ? P Normal Bun 10 mg/dL 7-18 Final [facility] mg/dL [facility] Laboratory & Pathology: [address] [place] [address] ? ? P Normal Creat 0.79 0.55-1.02 Final [facility] mg/dL mg/dL [facility] Laboratory & Pathology: [address] [place] [address] ? ? P ? Bn/cr 12.4 ? Final [facility] ratio [facility] Laboratory & Pathology: [address] [place] [address] ? ? P Normal Ca 8.7 mg/dL 8.5-10.1 Final [facility] mg/dL [facility] Laboratory & Pathology: [address] [place] [address] ? ? P Normal Alkp 79 U/L 37-98 U/L [facility] Laboratory & Pathology: [address] [place] [address] ? ? P Normal Alt 18 U/L 14-59 U/L [facility] Laboratory & Pathology: [address] [place] [address] ? ? P Normal Ast 15 U/L 15-37 U/L [facility] Laboratory & Pathology: [address] [place] [address] ? ? P Normal Tbil 1.0 mg/dL <=1.2 Final [facility] mg/dL [facility] Laboratory & Pathology: [address] [place] [address] ? ? P Normal Tp 7.4 g/dL 6.4-8.2 Final [facility] g/dL [facility] Laboratory & Pathology: [address] [place] [address] ? ? P Normal Alb 3.6 g/dL 3.4-5.0 Final [facility] g/dL [facility] Laboratory & Pathology: [address] [place] [address] ? ? P ? Glob 3.78 ? Final [facility] mg/dL [facility] Laboratory & Pathology: [address] [place] [address] ? ? P ? A/g 1.0 calc ? Final [facility] Laboratory & Pathology: [address] [place] [address] ? ? P ? Egfraa 104.28 ? Final [facility] Laboratory & Pathology: [address] [place] [address] ? ? P ? Egfrnaa 86.04 ? Final [facility] Laboratory & Pathology: [address] [place] [address] 01/14/2019 P ? Bhcg <1.0 ? Final [facility] Test, Serum mIU/mL Hospi ravi or Plasma Laborat ory & Pathology: [address] [place] [address] 01/14/2019 CMP, Serum P Normal Na 141 mEq/L 136-145 [facility] m[facility]/L Hospita l Laboratory & Pathology: [address] [place] [address] ? ? P Normal K 4.0 mEq/L 3.5-5.1 Final [facility] e mEq/L [facility] Laboratory & Pathology: [address] [place] [address] ? ? P Normal Cl 105 mEq/L 98-107 Final [facility] mEq/L [facility] Laboratory & Pathology: [address] [place] [address] ? ? P Normal Co2 28 mEq/L 21-32 Final [facility] mEq/L [facility] Laboratory & Pathology: [address] [place] [address] ? ? P ? Agap 23.8 ? Final [facility] ratio [facility] Laboratory & Pathology: [address] [place] [address] ? ? P Normal Glu 98.0 70.0-100. Final [facility] mg/dL 0 mg/dL [facility] Laboratory & Pathology: [address] [place] [address] ? ? P Normal Bun 10 mg/dL 7-18 Final [facility] Laboratory & Pathology: [address] [place] [address] ? ? P Normal Creat 0.79 0.55-1.02 Final [facility] mg/dL mg/dL [facility] Laboratory & Pathology: [address] [place] [address] ? ? P ? Bn/cr 12.4 calc ? Final [facility] Laboratory & Pathology: [address] [place] [address] ? ? P Normal Ca 8.7 mg/dL 8.5-10.1 Final [facility] mg/dL Hospital Laboratory & Pathology: [address] [place] [address] ? ? P Normal Alkp 79 U/L 37-98 U/L Final [facility] Laboratory & Pathology: [address] [place] [address] ? ? P Normal Alt 18 U/L 14-59 U/L [facility] Laboratory & Pathology: [address] [place] [address] ? ? P Normal Ast 15 U/L 15-37 U/L Final [facility] Laboratory & Pathology: [address] [place] [address] ? ? P Normal Tbil 1.0 mg/dL <=1.2 Final [facility] mg/dL [facility] Laboratory & Pathology: [address] [place] [address] ? ? P Normal Tp 7.4 g/dL 6.4-8.2 [facility] g/dL [facility] Laboratory & Pathology: [address] [place] [address] ? ? P Normal Alb 3.6 g/dL 3.4-5.0 [facility] g/dL [facility] Laboratory & Pathology: [address] [place] [address] ? ? P ? Glob 3.78 ? Final [facility] mg/dL [facility] Laboratory & Pathology: [address] [place] [address] ? ? P ? A/g 1.0 calc ? Final [facility] Laboratory & Pathology: [address] [place] [address] ? ? P ? Egfraa 104.28 ? Final [facility] Laboratory & Pathology: [address] [place] [address] ? ? P ? Egfrnaa 86.04 ? [facility] Laboratory & Pathology: [address] [place] [address] 01/14/2019 Lipase, P Normal Lip 83 U/L 73-393 Final [facility] Serum or U/L Hospital Plasma Laboratory & Pathology: [address] [place] [address] 01/14/2019 Amylase, P Normal Xiao 31 U/L 25-115 Final [facility] age Serum or U/L Hospital Plasma Laboratory & Pathology: [address] [place] [address] 01/14/2019 C Reactive P High Crp 2.60 <0.90 Final [facility] Protein, QN, mg/dL mg/dL Hosp ital Serum or Laborato ry Plasma & Pathology: [address] [place] [address] 01/14/2019 CBC W/ Auto WB Normal Wbc 8.4 4.8-10.8 Final [facility] Diff 10^3/mm^3 10^3/mm^3 Hosp ital Laboratory & Pathology: [address] [place] [address] ? ? WB Normal Rbc 4.38 3.90-5.03 Final [facility] 10^6/mm^3 10^6/mm^3 Hosp ital Laboratory & Pathology: [address] [place] [address] ? ? WB Normal Hgb 13.7 g/dL 12.0-15.5 Final [facility] age g/dL Hospital Laboratory & Pathology: [address] [place] [address] ? ? WB Normal Hct 42 % 36-46 % Final [facility] Laboratory & Pathology: [address] [place] [address] ? ? WB Normal Mcv 95.0 fL 81.0-99.0 Final [facility] fL [facility] Laboratory & Pathology: [address] [place] [address] ? ? WB Low Mch 31.3 pg 33.0-36.0 Final [facility] pg [facility] Laboratory & Pathology: [address] [place] [address] ? ? WB Normal Mchc 33 g/dL 33-36 Final [facility] g/dL Hospital Laboratory & Pathology: [address] [place] [address] ? ? WB Normal Rdw 13.8 % 11.6-14.8 Final [facility] Laboratory & Pathology: [address] [place] [address] ? ? WB Normal Platelets 173 150-400 [facility] 10^3/mm^3 10^3/mm^3 Hosp ital Laboratory & Pathology: [address] [place] [address] ? ? WB High Ne# 6.86 1.20-6.70 Final [facility] 10^3/mm^3 10^3/mm^3 Hosp ital Laboratory & Pathology: [address] [place] [address] ? ? WB Low Ly# 1.12 1.20-3.40 Final [facility] 10^3/mm^3 10^3/mm^3 Hosp ital Laboratory & Pathology: [address] [place] [address] ? ? WB Normal Mo# 0.37 0.11-0.70 Final [facility] 10^3/mm^3 10^3/mm^3 Hosp ital Laboratory & Pathology: [address] [place] [address] ? ? WB Normal Eo# 0.04 0.00-0.70 Final [facility] 10^3/mm^3 10^3/mm^3 Hosp ital Laboratory & Pathology: [address] [place] [address] ? ? WB Normal Ba# 0.00 0.00-0.20 Final [facility] 10^3/mm^3 10^3/mm^3 Hosp ital Laboratory & Pathology: [address] [place] [address] ? ? WB High Neut% 82 % per 40-74 % Final [facility] 100 WBC per 100 Hospital WBC Laboratory & Pathology: [address] [place] [address] ? ? WB Low Ly% 13 % per 19-48 % Final [facility] 100 WBC per 100 Hospital WBC Laboratory & Pathology: [address] [place] [address] ? ? WB Normal Mo% 4.4 % per 3.0-10.0 Final [facility] 100 WBC % per 100 Hospit al WBC Laboratory & Pathology: [address] [place] [address] ? ? WB Low Eo% 0.5 % per 1.0-7.0 % Final [facility] 100 WBC per 100 Hospital WBC Laboratory & Pathology: [address] [place] [address] ? ? WB Normal Ba% 0.0 % per 0.0-2.0 % Final [facility] 100 WBC per 100 Hospital WBC Laboratory & Pathology: [address] [place] [address] 01/06/2018 CBC W/ Auto ? Wbc 6.8 4.8-10.8 Final [facility] Diff x10^3/uL x10^3/uL Hospit al Laboratory & Pathology: [address] [place] [address] ? ? ? Rbc 4.25 3.90-5.03 Final [facility] x10^6/uL x10^6/uL Hospit al Laboratory & Pathology: [address] [place] [address] ? ? ? Hgb 13.2 g/dL 12.0-15.5 Final [facility] g/dL Hospital Laboratory & Pathology: [address] [place] [address] ? ? ? Hct 38.6 % 36.0-46.0 Final [facility] % Hospital Laboratory & Pathology: [address] [place] [address] ? ? ? Mcv 90.8 fL 81.0-99.0 Final [facility] fL [facility] Laboratory & Pathology: [address] [place] [address] ? ? Low Mch 31.1 pg 33.0-36.0 Final [facility] pg Hospital Laboratory & Pathology: [address] [place] [address] ? ? ? Mchc 34.2 g/dL 33.0-36.0 Final [facility] g/dL Hospital Laboratory & Pathology: [address] [place] [address] ? ? ? RDW-CV 13.8 % 11.6-14.8 Final [facility] % Hospital Laboratory & Pathology: [address] [place] [address] ? ? ? Plt 175 150-400 Final [facility] x10^3/uL x10^3/uL Hospit al Laboratory & Pathology: [address] [place] [address] ? ? ? Neut % 63.6 % 40.0-74.0 Final [facility] % Hospital Laboratory & Pathology: [address] [place] [address] ? ? ? Lymph % 30.6 % 19.0-48.0 Final [facility] % Hospital Laboratory & Pathology: [address] [place] [address] ? ? ? Cooper% 5 % 3-10 % Final [facility] Laboratory & Pathology: [address] [place] [address] ? ? ? Eos% 1 % 1-7 % Final [facility] Laboratory & Pathology: [address] [place] [address] ? ? ? Baso% 0 % 0-2 % Final [facility] Laboratory & Pathology: [address] [place] [address] ? ? ? Neut # 4.34 1.00-7.00 Final [facility] x10^3/uL x10^3/uL Hospit al Laboratory & Pathology: [address] [place] [address] ? ? ? Lymph# 2.09 1.20-3.40 Final [facility] x10^3/uL x10^3/uL Hospit al Laboratory & Pathology: [address] [place] [address] ? ? ? Cooper# 0.34 0.10-0.70 Final [facility] x10^3/uL x10^3/uL Hospit al Laboratory & Pathology: [address] [place] [address] ? ? ? Eos # 0.05 0.00-0.70 Final [facility] x10^3/uL x10^3/uL Hospit al Laboratory & Pathology: [address] [place] [address] ? ? ? Baso # 0.0 0.0-0.2 Final [facility] x10^3/uL x10^3/uL Hospit al Laboratory & Pathology: [address] [place] [address] 01/06/2018 Urinalysis, ? Color yellow ? Final [facility] Dipstick, Hospita l Reflex Micro Labo ratory & Pathology: [address] [place] [address] ? ? ABNORMAL Appearanc slightly clear Final [facility] e cloudy [facility] Laboratory & Pathology: [address] [place] [address] ? ? ? Specific >=1.030 ? Final [facility] Laboratory & Pathology: [address] [place] [address] ? ? ? Ph 5.5 ? Final [facility] Laboratory & Pathology: [address] [place] [address] ? ? ? Glucose negative negative Final [facility] Laboratory & Pathology: [address] [place] [address] ? ? ABNORMAL Bilirubin 1+ negative Final [facility] Laboratory & Pathology: [address] [place] [address] ? ? ABNORMAL Ketone trace negative Final [facility] Laboratory & Pathology: [address] [place] [address] ? ? ABNORMAL Blood 3+ negative Final [facility] Laboratory & Pathology: [address] [place] [address] ? ? ABNORMAL Protein 2+ negative Final [facility] Laboratory & Pathology: [address] [place] [address] ? ? ? Urobilino 0.2 ? Final [facility] gen E.U./dL Hospital Laboratory & Pathology: [address] [place] [address] ? ? ? Nitrite negative negative Final [facility] Laboratory & Pathology: [address] [place] [address] ? ? ? Leukocyte negative negative Final [facility] Laboratory & Pathology: [address] [place] [address] 01/06/2018 beta-HCG, ? Urine negative negative Final [facility] Qualitative, H ospital Urine Laboratory & Pathology: [address] [place] [address] 01/06/2018 Urinalysis, ABNORMAL Uwbc 0-2 /hpf ? [facility] Microscopic Hospi ravi Laboratory & Pathology: [address] [place] [address] ? ? ABNORMAL Urbc 20-50 ? Final [facility] Hospital Laboratory & Pathology: [address] [place] [address] ? ? ABNORMAL Sq. 5-10 /lpf ? Final [facility] Epithelial Hospit al Cells Laboratory & Pathology: [address] [place] [address] ? ? ABNORMAL Bacteria few .hpf ? Final [facility] Laboratory & Pathology: [address] [place] [address] ? ? ABNORMAL Mucus moderate ? Final [facility] /lpf Hospital Laboratory & Pathology: [address] [place] [address] ? ? ? Culture no ? Final [facility] Laboratory & Pathology: [address] [place] [address] 01/06/2018 CMP, Serum ? Sodium 143 mEq/L 136-145 Claudia l [facility] or Plasma mEq/L [facility] Laboratory & Pathology: [address] [place] [address] ? ? ? Potassium 3.8 mEq/L 3.5-5.1 Final [facility] mEq/L [facility] Laboratory & Pathology: [address] [place] [address] ? ? ? Chloride 107 mEq/L 98-107 Final [facility] age mEq/L [facility] Laboratory & Pathology: [address] [place] [address] ? ? ? Carbon 28 mEq/L 21-32 Final [facility] Dioxide mEq/L [facility] Laboratory & Pathology: [address] [place] [address] ? ? ? Anion Gap 12 ratio ? Final [facility] Laboratory & Pathology: [address] [place] [address] ? ? ? Calcium 8.8 mg/dL 8.5-10.1 Final [facility] mg/dL [facility] Laboratory & Pathology: [address] [place] [address] ? ? ? Glucose 95 mg/dL 74-106 Final [facility] Laboratory & Pathology: [address] [place] [address] ? ? ? Bun 13 mg/dL 7-18 Final [facility] Laboratory & Pathology: [address] [place] [address] ? ? ? Creatinin 0.75 0.55-1.02 Final [facility] mg/dL mg/dL Hospital Laboratory & Pathology: [address] [place] [address] ? ? ? BUN/creat 17.3 calc 12.0-20.0 Final [facility] Ratio calc Hospital Laboratory & Pathology: [address] [place] [address] ? ? ? GFR >60 >=60 Final [facility]/1. mL/min/1. H ospital 73 m2 73 m2 Laboratory & Pathology: [address] [place] [address] ? ? ? GFR >60 >=60 Final [facility] mL/[facility]/1. mL/min/1. Hos pital [place] 73 m2 73 m2 Laborato ry & Pathology: [address] [place] [address] ? ? ? Total 7.2 g/dL 6.4-8.2 Final [facility] Protein g/dL Hospital Laboratory & Pathology: [address] [place] [address] ? ? ? Albumin 3.8 g/dL 3.4-5.0 Final [facility] g/dL [facility] Laboratory & Pathology: [address] [place] [address] ? ? ? Globulin 3.4 g/dL ? Final [facility] Laboratory & Pathology: [address] [place] [address] ? ? ? A/g Ratio 1.1 calc 1.1-1.8 Final [facility] Laboratory & Pathology: [address] [place] [address] ? ? ? ALT(SGPT) 26 U/L 14-59 U/L Final [facility] Laboratory & Pathology: [address] [place] [address] ? ? ? Ast 15 U/L 15-37 U/L Final [facility] ([place]) [facility] Laboratory & Pathology: [address] [place] [address] ? ? ? Alk. 70 U/L 37-98 U/L Final [facility] e Laboratory & Pathology: [address] [place] [address] ? ? High Total 1.4 mg/dL 0.1-1.2 Final [facility] e Bilirubin mg/dL Hospita l Laboratory & Pathology: [address] [place] [address] 01/06/2018 Lipase, ? Lipase 96 U/L 73-393 Final [place] Serum or U/L [facility] Plasma Laboratory & Pathology: [address] [place] [address] Past Encounters 12/26/2020 Acetabular Labrum Tear Evin Williamson PA: [address] [place] [phone], Ph. 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 Social History Tobacco Smoking Status Current Every Day Smoker Notes: Vaccine List None recorded. Plan of Care Patient Instructions As I discussed with Jessica, I would consider the injection successful. The fact that she got 4 good days of relief is a good indicator that this is an intrinsic issue coming from the hip. For this reason I would suggest a MRI arthrogram of her right hip to look for labral tear. If she does indeed have a labral tear is suspected I would refer her down to Dr. DaS ilva for consideration of arthroscopic intervention. If it comes back negative and there is no issues with the hip that are identifiable, we may need to start looking at her back because of this numbness she is getting, but again, I do not t hink this is coming from her back at thi s time. She understands. We will get this set up and I will see her back after the MRI has been completed. She will call me with any questions or concerns. This note was created using [email or web address] voice recognition software. It was reviewed for major content. However, there may be multiple small discrepancies and errors due to the voice recognition aspects of the software. I discussed with Jessica that I thin k we need to rule out if she is got a lateral meniscal tear. In terms of the hip I would like to try an intra- articular injection to see if this provides her some relief. If it does for a short period o f time then we could consider an MRI arthrogram to rule out labral tearing but I think I would definitely try the injection first and see how she does. Even if avery titus had an MRI which did show the labral t earing I would suggest doing the injection anyway so if it helps relieve her pain without having to go through another scan I think that would be helpful. We will get the MRI scan of the knee as mention ed above. I will hear back from her after the scan has been obtained and we will go over the results and further treatment options. This note was created using [email or web address] voice recognition software. It was reviewed for major content. However, there may be multiple small discrepancies and errors due to the voice recognition aspects of the software. Reminders Provider Appointments None recorded. ? ? Lab None recorded. ? ? Referral None recorded. ? ? Procedures None recorded. ? ? Surgeries None recorded. ? ? Imaging None recorded. ? ? Vitals 12/26/2020 01:10PM ORTHO 20 FOLLOW UP Height 157.48 cm 11/20/2020 02:50PM ORTHO 20 NEW PATIENT Height Weight BMI Blood Pressure 157.48 cm 113.4 kg 45.7 kg/m2 130/70 mm[Hg] 09/20/2018 02:20PM ORTHO 40 NEW PATIENT Height Weight BMI Blood Pressure 157.48 cm 90.72 kg 36.6 kg/m2 128/80 mm[Hg]
[2021-07-05 12:09] VITALS: BP 144/77; PULSE 94; RESP 18; TEMP 37; O2SAT 98
--- NOTE | 2021-07-05 12:20 | W.ED.GENAD ---
Discharge Plan Disposition Patient Disposition: HOME Condition: Good Discharge Details Clinical Impression: Dysfunction of eustachian tube Primary Care Provider: Mark Anthony Avery ED Provider: Nely Gillette Home Meds and New Rx's Prescriptions: Continued lamotrigine [Lamictal] 100 mg tablet 100 mg PO DAILY RF: 0 fluconazole [Diflucan] 150 mg tablet 150 mg PO DAILY RF: 0 omeprazole 20 mg tablet,delayed release (DR/EC) 20 mg PO AC RF: 0 amoxicillin-pot clavulanate [Augmentin] 875-125 mg tablet 1 tab PO BID RF: 0 metronidazole 500 mg tablet 500 mg PO BID RF: 0 ondansetron 4 mg tablet,disintegrating 4 mg PO Q8H PRNRF: 0 albuterol sulfate 0.63 mg/3 mL solution for nebulization 0.63 mg inhalation Q6H PRNRF: 0 albuterol sulfate 90 mcg/actuation HFA aerosol inhaler 2 puff inhalation Q6H PRNRF: 0 Flovent HFA 120 PUFF HFA aerosol inhaler 2 puff Inhalation DAILY RF: 0 levalbuterol tartrate [Xopenex HFA] 200 PUFF HFA aerosol inhaler 2 puff Inhalation Q6H PRN PRNRF: 0 trazodone 50 mg tablet 50 mg PO RF: 0 prochlorperazine maleate [Compazine] 10 mg tablet 10 mg PO TID PRN (Reason: nausea and vomiting) Qty: 30 RF: 0 lorazepam 0.5 mg tablet 0.5 mg PO PRNRF: 0 amoxicillin 500 mg tablet 1,000 mg PO DAILY Qty: 9 RF: 0 famotidine [Pepcid] 20 mg Tablet 20 mg PO DAILY RF: 0 Discharge Instructions Instructions: Earache (ED) Additional Instructions: Your history and exam is most consistent with dysfunction of your eustachian tube as we discussed. This is likely associated with the congestion and thick mucus you have been feeling in the back of your throat. Please encourage hydration then. Tylenol and ibuprofen as needed for comfort. You may try nasal saline or [facility] pot to help flush this out. Alternatively, you could try Afrin in your nose as directed on the box. If you do use the Afrin, please not use for more than 3 days consecutively. Please keep your upcoming appointment with ENT. If pain persist, please follow-up with primary care in 2 weeks for reevaluation. If you develop fever/chills, ear drainage or other new/worsening symptom please seek care urgently once again Referrals: Mark Anthony Avery [Primary Care Provider] - Discharge Data Discharge Date/Time-TO BE ENTERED AT DEPARTURE: 07/05/21 12:35 Medical Decision Making patient is a pleasant 30-year-old female presenting today with chief complaint of left ear pain. She was here 3 weeks ago at which time she was diagnosed streptococcal pharyngitis. Completed her antibiotic and states that her sore throat feels better. However, she states that she has been having left ear pain for the past 2 weeks now. Was seen by her primary care and started on Sudafed. Despite this, her symptoms have persisted. She feels difficult to pop my ears. She denies any fevers or chills. No drainage from the ears. Patient does have upcoming appointment with ENT on August 11. On exam, patient is nontoxic-appearing. Her left tympanic membrane appears slightly retracted. I do not appreciate any fluid, purulent discharge, bulging of the tympanic membrane. External ear canals normal. No mastoid tenderness. No lymphadenopathy. Normal exam of posterior oropharynx. Lungs are clear. Her exam and history is most consistent with eustachian tube dysfunction. She has tried Sudafed, I am wondering if flushing out the eustachian tube would be more beneficial. She reports that she is been having significant postnasal drip which seems to be causing the majority of her symptoms. Advised nasal saline may have been of benefit. Alternatively, she could try Afrin but I advised that she not take this more than 3 days in a row. Return precautions were discussed. Advise follow-up with primary care in the next 2 weeks for reevaluation if symptoms persist. All of her questions and concerns were addressed and she is in agreement this plan. HPI General Mode of arrival: ambulatory. Date/Time Provider Initiated Documentation: 07/05/21 12:20. Limitations to Documentation: no limitations. Information obtained by: patient and RN notes reviewed. History of Present Illness 30 year old F presents to the emergency department with the chief complaint of left ear pain, described as moderate, Quality is described as aching, and is localized to the face (left ear). Patient reports no radiation. Patient started experiencing this week(s) (2) and it has been intermittent (feels like it get plugged and she cannot pop her ear). No relieving factors improve symptom(s), No exacerbating factors reported . Patient notes no other symptoms.. Patient did receive the following treatments prior to arrival, none Related Data Home Medications Medication Instructions Recorded Confirmed Flovent HFA 2 puff INHALATION DAILY inh 03/18/15 06/09/21 levalbuterol tartrate [Xopenex HFA] 2 puff INHALATION Q6H PRN PRN inh 03/18/15 06/09/21 famotidine [Pepcid] 20 mg PO DAILY 01/07/21 06/09/21 trazodone 50 mg PO 02/12/21 05/14/21 prochlorperazine maleate 10 mg PO TID PRN #30 tab 02/13/21 06/09/21 [Compazine] lamotrigine 100 mg tablet 100 mg PO DAILY 05/14/21 06/09/21 amoxicillin 1,000 mg PO DAILY #9 tab 06/09/21 lorazepam 0.5 mg PO PRN 06/09/21 albuterol sulfate 0.63 mg/3 mL 0.63 mg INHALATION Q6H PRN 07/05/21 solution for nebulization albuterol sulfate 90 mcg/actuation 2 puff INHALATION Q6H PRN 07/05/21 aerosol inhaler amoxicillin 875 mg-potassium 1 tab PO BID 07/05/21 clavulanate 125 mg tablet fluconazole 150 mg tablet 150 mg PO DAILY 07/05/21 metronidazole 500 mg tablet 500 mg PO BID 07/05/21 omeprazole 20 mg tablet,delayed 20 mg PO AC tab 07/05/21 release ondansetron 4 mg disintegrating 4 mg PO Q8H PRN 07/05/21 tablet Previous Rx's Medication Instructions Recorded Flovent HFA 2 puff INHALATION DAILY inh 03/18/15 levalbuterol tartrate [Xopenex HFA] 2 puff INHALATION Q6H PRN PRN inh 03/18/15 prochlorperazine maleate 10 mg PO TID PRN #30 tab 02/13/21 [Compazine] amoxicillin 1,000 mg PO DAILY #9 tab 06/09/21 Allergies Allergy/AdvReac Type Severity Reaction Status Date / Time latex Allergy Intermediate Swelling/Ed Unverified 07/05/21 12:13 tona raspberry Allergy Unknown Anaphylaxsi Unverified 07/05/21 12:13 s No Known Drug Allergies Allergy Unverified 07/05/21 12:13 pollen extracts AdvReac Intermediate Verified 07/05/21 12:13 General Stated Complaint: EarProblem CHARITY: 4 Review of Systems Constitutional Constitutional: Reports as per HPI, Denies chills, Denies fever(s) and Denies headache(s) Eyes Eyes: Reports as per HPI and Denies irritation ENT Ears, Nose, Mouth, and Throat: Reports as per HPI, Denies abnormal hearing, Denies vertigo, Denies dizziness, Denies ear discharge, Reports otalgia and Denies headache(s) Cardiovascular Cardiovascular: Reports as per HPI and Denies dyspnea Respiratory Respiratory: Reports as per HPI and Denies dyspnea Integumentary/Breasts Skin/Breast: Reports as per HPI and Denies rash Neurologic Neurologic: Reports as per HPI, Denies abnormal hearing, Denies vertigo, Denies dizziness and Denies headache(s) PFSH All Active Problems (Updated 07/05/21 @ 12:23 by ETHAN Hare) Dysfunction of eustachian tube (Acute) Acute streptococcal pharyngitis (Acute) Patellar instability of right knee (Acute) Labral tear of right hip joint (Acute) (Acute) 27 1/7 weeks as of 12/17/13. Nausea and vomiting (Acute) Abdominal pain (Acute) Medical History (Updated 07/05/21 @ 12:23 by ETHAN Hare) Asthma last attack 2011 BMI 36.0-36.9,adult Depression Rx with Wellbutrin 2011 Dyshidrotic eczema GERD (gastroesophageal reflux disease) Major depressive disorder Mild intermittent asthma with (acute) exacerbation Missed menses Nephrolithiasis Other chronic pain Surgical History Arthroplasty of knee 07/2011 R knee Family History Grandfather Personal history of malignant neoplasm throat CA Grandmother Diabetes Social History Smoking/Tobacco Use Status: Former Tobacco Use Smoking risk assessment performed?: Yes Alcohol Intake: never Drug use: Occasionally Substance use type: marijuana Current gender identity: female Do you feel safe at home: Yes Do you feel safe in your relationship?: Yes Exam Const General: cooperative, healthy appearing, comfortable, no acute distress, well developed and well groomed Nutritional Appearance: average body habitus and well nourished Orientation: alert and awake [facility] Head: normal to inspection, normocephalic and atraumatic Ears: hearing grossly normal bilaterally, external ears normal, TM normal on the right, left TM abnormal (retracted but no bulging, erythema, fluid), mastoids normal and no periauricular adenopathy General nose exam: external nose normal and nares normal Face and sinus: normal facial exam, sinuses nontender and face symmetric Mouth: oral mucosae normal, lip normal, tongue normal, oropharynx normal and moist mucous membranes Teeth and gingiva: dentition normal Throat: posterior oropharynx normal, tonsils normal and uvula midline Eyes General: appearance normal, both eyes and all related structures Neck Neck: normal visual inspection, full ROM and no lymphadenopathy Resp Effort & Inspection: normal respiratory effort, able to speak in complete sentences and no respiratory distress Auscultation: clear to auscultation bilaterally, no rales, no rhonchi and no wheezes Cardio Rate: regular rate Rhythm: regular rhythm Heart Sounds: S1 normal and S2 normal Skin General skin exam: no rashes or lesions noted Neuro General: patient alert and patient awake Cognition: normal cognition Speech: speech normal Gait: normal gait Psych Appearance: grossly normal and well kempt Mental Status: mental status grossly normal Speech and Movement: speech and movement normal Course Vital Signs Vital signs: Vital Signs Temperature 37 C 07/05/21 12:09 Pulse 94 H 07/05/21 12:09 Respiratory Rate 18 07/05/21 12:09 Blood Pressure 144/77 H 07/05/21 12:09 Pulse Oximetry 98 07/05/21 12:09 Temperature 37 C 07/05/21 12:09 Temperature Source Temporal Artery Scan 07/05/21 12:09 Pulse 94 H 07/05/21 12:09 Respiratory Rate 18 07/05/21 12:09 Respiratory Effort Non-Labored 07/05/21 12:13 Blood Pressure 144/77 H 07/05/21 12:09 Blood Pressure Position Sitting 07/05/21 12:09 Pulse Oximetry 98 07/05/21 12:09 Oxygen Delivery Method Room Air 07/05/21 12:09 Oxygen Flow Rate 0 07/05/21 12:09
== END 2021-07-05 12:35 | disposition home or self-care (01) ==
PROVIDERS: Emergency Provider Physician Assistant; PCP Family Medicine
DX: H69.82 Other specified disorders of Eustachian tube, left ear (principal)
CPT/HCPCS: 99282

== ENCOUNTER 2021-09-06 09:37 | Emergency (ER) | payer MEDICAID, SELFPAY ==
[2021-09-06 09:49] VITALS: BP 136/71; PULSE 92; RESP 20; TEMP 36.8; O2SAT 98
--- NOTE | 2021-09-06 10:08 | W.ED.GENAD ---
Discharge Plan Disposition Patient Disposition: HOME Condition: Stable Discharge Details Clinical Impression: Abscess, dental Primary Care Provider: Mark Anthnoy Avery ED Provider: Gloria Husain Home Meds and New Rx's Prescriptions: New penicillin V potassium 500 mg tablet 500 mg PO QID Qty: 40 0RF ondansetron HCl 4 mg tablet 4 mg PO BID-TID Qty: 10 0RF Continued lamotrigine [Lamictal] 100 mg tablet 100 mg PO DAILY 0RF albuterol sulfate 0.63 mg/3 mL solution for nebulization 0.63 mg inhalation Q6H PRN0RF albuterol sulfate 90 mcg/actuation HFA aerosol inhaler 2 puff inhalation Q6H PRN0RF Flovent HFA 120 PUFF HFA aerosol inhaler 2 puff Inhalation DAILY 0RF levalbuterol tartrate [Xopenex HFA] 200 PUFF HFA aerosol inhaler 2 puff Inhalation Q6H PRN PRN0RF trazodone 50 mg tablet 50 mg PO DAILY 0RF prochlorperazine maleate [Compazine] 10 mg tablet 10 mg PO TID PRN (Reason: nausea and vomiting) Qty: 30 0RF lorazepam 0.5 mg tablet 0.5 mg PO BID 0RF Label Comments: TAKE 1 TABLET BY MOUTH TWICE DAILY famotidine [Pepcid] 20 mg Tablet 20 mg PO DAILY 0RF Discharge Instructions Instructions: Dental Abscess (ED) Additional Instructions: Follow-up with your dentist on Thursday at your scheduled appointment Take antibiotic as prescribed Yogurt daily while on antibiotic Continue with her ibuprofen and Tylenol regimen I have given you a small amount of opiate analgesia, this is addictive and can make you constipated, do not drive for 8 hours after taking this medication Please return with difficulty swallowing, chest pain, shortness of breath, or if you are unable to take your antibiotics You may take Zofran as needed for nausea and vomiting Referrals: Mark Anthony Avery [Primary Care Provider] - Discharge Data Discharge Date/Time-TO BE ENTERED AT DEPARTURE: 09/06/21 10:21 Medical Decision Making Patient placed on penicillin Afebrile and nontoxic, no evidence of Lillie's angina We'll take ibuprofen and Tylenol for pain control Given small amount of opiate analgesia for home, risk of addiction discussed Return precautions patient expressed understanding Has an appointment with her dentist on Thursday which she is instructed to maintain Medical Records Medical records reviewed: Yes I reviewed the patient's medical records. HPI General Date/Time Provider Initiated Documentation: 09/06/21 09:58. HPI Narrative: This 31-year-old female presents with right-sided dental pain. She status post dental extractions 3 days prior to arrival. She is not currently on antibiotics. She is taking ibuprofen and Tylenol for pain control. She denies any chance of . She has nauseous without vomiting. Denies chest pain, shortness of breath, difficulty swallowing. Related Data Home Medications Medication Instructions Recorded Confirmed fluticasone propionate 110 2 puff INHALATION DAILY inh 03/18/15 09/06/21 mcg/actuation HFA aerosol inhaler (Flovent HFA) levalbuterol tartrate 45 2 puff INHALATION Q6H PRN PRN inh 03/18/15 09/06/21 mcg/actuation aerosol inhaler (Xopenex HFA) famotidine 20 mg tablet (Pepcid) 20 mg PO DAILY 01/07/21 09/06/21 trazodone 50 mg tablet 50 mg PO DAILY 02/12/21 09/06/21 prochlorperazine maleate 10 mg 10 mg PO TID PRN #30 tab 02/13/21 09/06/21 tablet (Compazine) lamotrigine 100 mg tablet 100 mg PO DAILY 05/14/21 09/06/21 (Lamictal) lorazepam 0.5 mg tablet 0.5 mg PO BID 06/09/21 09/06/21 albuterol sulfate 0.63 mg/3 mL 0.63 mg INHALATION Q6H PRN 07/05/21 09/06/21 solution for nebulization albuterol sulfate 90 mcg/actuation 2 puff INHALATION Q6H PRN 07/05/21 09/06/21 aerosol inhaler ondansetron HCl 4 mg tablet 4 mg PO BID-TID #10 tab 09/06/21 penicillin V potassium 500 mg 500 mg PO QID #40 tab 09/06/21 tablet Previous Rx's Medication Instructions Recorded fluticasone propionate 110 2 puff INHALATION DAILY inh 03/18/15 mcg/actuation HFA aerosol inhaler (Flovent HFA) levalbuterol tartrate 45 2 puff INHALATION Q6H PRN PRN inh 03/18/15 mcg/actuation aerosol inhaler (Xopenex HFA) prochlorperazine maleate 10 mg 10 mg PO TID PRN #30 tab 02/13/21 tablet (Compazine) ondansetron HCl 4 mg tablet 4 mg PO BID-TID #10 tab 09/06/21 penicillin V potassium 500 mg 500 mg PO QID #40 tab 09/06/21 tablet Allergies Allergy/AdvReac Type Severity Reaction Status Date / Time latex Allergy Intermediate Swelling/Ed Unverified 09/06/21 09:55 tona raspberry Allergy Unknown Anaphylaxsi Unverified 09/06/21 09:55 s No Known Drug Allergies Allergy Unverified 09/06/21 09:55 pollen extracts AdvReac Intermediate Verified 09/06/21 09:55 General Stated Complaint: DentalOral CHARITY: 4 Review of Systems All systems reviewed & are unremarkable except as noted in HPI and below PFSH All Active Problems (Updated 09/06/21 @ 10:13 by ETHAN Giron) Abscess, dental (Acute) Referred otalgia of left ear (Acute) History of strep pharyngitis (Acute) Acute streptococcal pharyngitis (Acute) Patellar instability of right knee (Acute) Labral tear of right hip joint (Acute) (Acute) 27 1/7 weeks as of 12/17/13. Nausea and vomiting (Acute) Abdominal pain (Acute) Medical History Asthma last attack 2011 BMI 36.0-36.9,adult Depression Rx with Wellbutrin 2011 Dyshidrotic eczema GERD (gastroesophageal reflux disease) Major depressive disorder Mild intermittent asthma with (acute) exacerbation Missed menses Nephrolithiasis Other chronic pain Surgical History Arthroplasty of knee 07/2011 R knee History of section 07/09/2017 Family History Maternal Grandfather Personal history of malignant neoplasm throat CA Grandmother Diabetes Son Age: 4y 1m Asthma Social History Smoking/Tobacco Use Status: Former Tobacco Use tobacco type: cigarettes Quit Date: 04/12/21 Smoking risk assessment performed?: Yes Alcohol Intake: never Drug use: Occasionally Substance use type: marijuana Number of Children: 1 Pets and animals: Yes (1) Pets and animals: cat(s) Current gender identity: female Do you feel safe at home: Yes Do you feel safe in your relationship?: Yes Exam Const General: cooperative, comfortable and no acute distress [facility] Teeth image: 1. Dental extraction sites, no evidence of dry socket, mild maxillary swelling, no evidence of Lillie's angina, no soft palate or hard palate induration, maintaining secretions, no stridor Neck Other: No stridor Resp Effort & Inspection: normal respiratory effort Cardio Rate: regular rate Course Vital Signs Vital signs: Vital Signs Temperature 36.8 C 09/06/21 09:49 Pulse 92 H 09/06/21 09:49 Blood Pressure 136/71 09/06/21 09:49 Temperature 36.8 C 09/06/21 09:49 Temperature Source Tympanic 09/06/21 09:49 Pulse 92 H 09/06/21 09:49 Respiratory Effort Non-Labored 09/06/21 09:54 Blood Pressure 136/71 09/06/21 09:49 Blood Pressure Position Sitting 09/06/21 09:49 Pain Level 9 09/06/21 09:54
[2021-09-06 10:26] VITALS: BP 136/71; PULSE 92; RESP 20; TEMP 36.8; O2SAT 98
== END 2021-09-06 10:21 | disposition home or self-care (01) ==
PROVIDERS: Emergency Provider Physician Assistant; PCP Family Medicine
DX: K04.7 Periapical abscess without sinus (principal); R11.0 Nausea
CPT/HCPCS: 99283

== ENCOUNTER 2021-10-31 01:50 | Outpatient (CLI) | payer MEDICAID, SELFPAY ==
--- NOTE | 2021-10-31 07:45 | DI.RAD_ITS ---
Exam(s) RF JOINT INJECTION FLUORO GUID EXAM: RF JOINT INJECTION FLUORO GUID CLINICAL HISTORY: RIGHT HIP PAIN,fluoro guided hip injection TECHNIQUE: Fluoroscopy provided. Radiologist not present. CONTRAST MATERIAL: None COMPARISON: No exams were available for comparison FINDINGS: Fluoroscopy was provided for therapeutic right hip injection. Submitted image(s) reveal needle placement lateral aspect of the femoral head. Intra-articular contr ast injected Please refer to the procedure report for complete details. Cumulative Dose: Kar=10.8 mGy IMPRESSION: RADIATION DOSE DELIVERED:
--- NOTE | 2021-10-31 13:38 | W.PROCNOTE ---
Date of service: 10/31/21 Time of Service: 13:38 Procedure Note Date of procedure: 10/31/21 Procedure: Right Hip Injection with Fluoroscopic Guidance Surgeon/Proceduralist/Physician: Teo Whatley Procedure Diagnosis: Right Hip Labral Tear Procedure Indications: Jessica has had persistent pain of the RIGHT hip and groin. Noninvasive measures have been tried. To serve as both diagnostic and therapeutic, an injection under fluoroscopy was recommended. I had discussed the risks of the procedure and the patient elected to proceed. Procedure Description: Jessica was greeted in the flouroscopy room. The correct side was identified and the consent was reviewed with the patient and signed. The patient was then placed in the supine position on the fluoroscopy table. The RIGHT hip was then prepped with Chloraprep. The anterolateral injection starting point was identiifed by bony landmarks and fluoroscopy. The skin and soft tissue in the tract of the injection was anesthetized with 1% Lidocaine. A spinal needle was then inserted deep into the hip joint at the level of the lateral femoral neck under fluoroscopic guidance. A small amount of Omnipaque solution was injected to confirm intraarticular placement. Once confirmed, the hip was injected with 6cc of 0.5% Bupivicaine and 80mg of Depo-Medrol. The patient tolerated the procedure well and noted improvement in pre-injection pain.
[2021-10-31] MEDS: Bupivacaine 0.5% Pres-Free 30 ML VIAL 5 ML IJ (14:18)
[2021-10-31] MEDS: Omnipaque 300 MG/ML 10 ML BTL IJ (14:19)
[2021-10-31] MEDS: methylPREDNISolone ACETATE 80 MG/ML VIAL IM (14:19)
== END 2021-10-31 02:10 ==
PROVIDERS: PCP Family Medicine; Visit Provider Student in an Organized Health Care Education/Training Program
DX: M25.551 Pain in right hip (principal)
CPT/HCPCS: 20610; 77002; J1040

== ENCOUNTER 2022-02-24 10:07 | Emergency (ER) | payer MEDICAID, SELFPAY ==
[2022-02-24 10:13] VITALS: BP 141/77; PULSE 97; RESP 18; TEMP 36.5; O2SAT 98
--- NOTE | 2022-02-24 10:15 | DI.RAD_ITS ---
Exam(s) XR SHOULDER RT COMPLETE 2+V EXAM: XR SHOULDER RT COMPLETE 2+V CLINICAL HISTORY: pain. TECHNIQUE: 2D digital imaging was performed. COMPARISON: No exams were available for comparison FINDINGS: Five views No evidence of fracture nor dislocation nor abnormal soft tissue calcifications. Subacromial space u nremarkable. Coracoid intact. Subacromial space is not diminished. Bone density normal. No osseou s lesions. AC joint appears unremarkable. Clavicle unremarkable. There is a calcific density measuring 7 x 5 millimeters located adjacent to the diaphysis of the jermaine ike approximately 8-9 cm below the humerus neck level. This appears slightly low to be a loose body within the biceps tendon sheath. IMPRESSION: No fractures. 7 x 5 millimeter calcific density adjacent to the diaphysis of the upper-mid humerus as described abo edith. DATA REPOSITORY: RADIATION DOSE DELIVERED:
--- NOTE | 2022-02-24 10:27 | W.ED.GENAD ---
Discharge Plan Disposition Patient Disposition: HOME Condition: Stable Discharge Details Clinical Impression: Pain in right shoulder Primary Care Provider: Mark Anthony Avery ED Provider: Gorge Asencio Home Meds and New Rx's Prescriptions: New gabapentin 300 mg capsule 300 mg PO TID Qty: 30 0RF Continued lamotrigine [Lamictal] 100 mg tablet 100 mg PO DAILY albuterol sulfate 0.63 mg/3 mL solution for nebulization 0.63 mg inhalation Q6H PRN albuterol sulfate 90 mcg/actuation HFA aerosol inhaler 2 puff inhalation Q6H PRN Flovent HFA 120 PUFF HFA aerosol inhaler 2 puff Inhalation DAILY 0RF trazodone 50 mg tablet 50 mg PO DAILY lorazepam 0.5 mg tablet 0.5 mg PO BID Label Comments: TAKE 1 TABLET BY MOUTH TWICE DAILY famotidine [Pepcid] 20 mg Tablet 20 mg PO DAILY Discharge Instructions Instructions: Shoulder Pain (ED) Additional Instructions: your xray did not show a broken bone call orthopedics for a follow up appointment if you feel more ill, have severe worsening pain or difficulty breathing return to the emergency department Referrals: Gerardo Orta MD [ [facility] STAFF PHYSICIAN] - Medical Decision Making 31 yo female comes in with 2 months of right shoulder pain that has gradually been worsening. She denies any known trauma or injuries. Denies chest pain, dyspnea, fevers, chills. she localizes the pain to the anterior and posterior right shoulder. She has no visible or palpable deformities, no erythema or warmth, can abduct the shoulder to about 90degrees then can't due to pain. Normal distal sensation and pulses. Suspect tendonitis vs possible tendon injury, no findings to suggest septic joint or other infectious etiology. Will obtain xray to evaluate for possible fracture though unlikely given lack of trauma xray negative for fracture, does have a calcification which is likely incidental and unlikely the cause of her pain. She is stable, will provide a sling for comfort and advised to call ortho for f/u Differential Diagnosis Differential Diagnosis: bursitis, tendonitis, strain, rotator cuff injury Imaging Data Radiologic Study: Attestation: I personally reviewed and interpreted this imaging study as follows: Imaging: X-Ray Radiologist's impression: Patient Name: Jessica Felix Unit #: [id number] Loc: ER ? Ordering Provider:? Gorge Asencio M.D. Status: REG ER ? Primary Care Provider: Mark Anthony Avery Date of Exam: 02/24/22 Sex: F ? Admission Date: 02/24/22? : 1990 ? Age: 31 ? Exam(s) XR SHOULDER RT COMPLETE 2+V EXAM:? XR SHOULDER RT COMPLETE 2+V CLINICAL HISTORY: ? pain. ? TECHNIQUE:? 2D digital imaging was performed. COMPARISON:? No exams were available for comparison FINDINGS: Five views No evidence of fracture nor dislocation nor abnormal soft tissue calcifications.? Subacromial space unremarkable.? Coracoid intact.? Subacromial space is not diminished.? Bone density normal.? No osseous lesions. AC joint appears unremarkable.? Clavicle unremarkable. There is a calcific density measuring 7 x 5 millimeters located adjacent to the diaphysis of the humerus approximately 8-9 cm below the humerus neck level.? This appears slightly low to be a loose body within the biceps tendon sheath. IMPRESSION: No fractures. 7 x 5 millimeter calcific density adjacent to the diaphysis of the upper-mid humerus as described above. HPI General Mode of arrival: ambulatory. Date/Time Provider Initiated Documentation: 02/24/22 10:10. Limitations to Documentation: no limitations. Information obtained by: patient. History of Present Illness 31 year old F presents to the emergency department with the chief complaint of right shoulder pain, described as moderate, Patient reports no radiation. Patient started experiencing this month(s) (2) and it has been constant. Rest improves symptom(s), Movement worsens symptoms . Patient notes no other symptoms.. Patient did receive the following treatments prior to arrival, none Related Data Home Medications Medication Instructions Recorded Confirmed fluticasone propionate 110 2 puff inhalation DAILY 03/18/15 10/16/21 mcg/actuation HFA aerosol inhaler (Flovent HFA) famotidine 20 mg tablet (Pepcid) 20 mg PO DAILY 01/07/21 10/16/21 trazodone 50 mg tablet 50 mg PO DAILY 02/12/21 10/16/21 lamotrigine 100 mg tablet 100 mg PO DAILY 05/14/21 10/16/21 (Lamictal) lorazepam 0.5 mg tablet 0.5 mg PO BID 06/09/21 10/16/21 albuterol sulfate 0.63 mg/3 mL 0.63 mg inhalation Q6H PRN 07/05/21 10/16/21 solution for nebulization albuterol sulfate 90 mcg/actuation 2 puff inhalation Q6H PRN 07/05/21 10/16/21 aerosol inhaler gabapentin 300 mg capsule 300 mg PO TID #30 caps 02/24/22 Previous Rx's Medication Instructions Recorded fluticasone propionate 110 2 puff inhalation DAILY 03/18/15 mcg/actuation HFA aerosol inhaler (Flovent HFA) gabapentin 300 mg capsule 300 mg PO TID #30 caps 02/24/22 Allergies Allergy/AdvReac Type Severity Reaction Status Date / Time latex Allergy Intermediate Swelling/Ed Unverified 10/16/21 10:11 tona raspberry Allergy Unknown Anaphylaxsi Unverified 10/16/21 10:11 s pollen extracts AdvReac Intermediate Verified 10/16/21 10:11 General Stated Complaint: Orthopedic CHARITY: 4 Review of Systems All systems reviewed & are unremarkable except as noted in HPI and below Constitutional Constitutional: Denies chills, Denies fever(s) and Denies weakness Cardiovascular Cardiovascular: Denies chest pain and Denies dyspnea Respiratory Respiratory: Denies cough and Denies dyspnea Gastrointestinal Gastrointestinal: Denies abdominal pain, Denies nausea and Denies vomiting Integumentary/Breasts Skin/Breast: Denies rash Neurologic Neurologic: Denies weakness PFSH All Active Problems (Updated 02/24/22 @ 11:19 by Gorge Asencio MD) Pain in right shoulder (Acute) Referred otalgia of left ear (Acute) History of strep pharyngitis (Acute) Acute streptococcal pharyngitis (Acute) Patellar instability of right knee (Acute) Labral tear of right hip joint (Acute) (Acute) 27 1/7 weeks as of 12/17/13. Nausea and vomiting (Acute) Abdominal pain (Acute) Medical History Asthma last attack 2011 BMI 36.0-36.9,adult Depression Rx with Wellbutrin 2011 Dyshidrotic eczema GERD (gastroesophageal reflux disease) Major depressive disorder Mild intermittent asthma with (acute) exacerbation Missed menses Nephrolithiasis Other chronic pain Surgical History Arthroplasty of knee 07/2011 R knee History of section 07/09/2017 Family History Maternal Grandfather Personal history of malignant neoplasm throat CA Grandmother Diabetes Son Age: 4y 3m Asthma Social History Smoking/Tobacco Use Status: Former Tobacco Use tobacco type: cigarettes Quit Date: 04/12/21 Smoking risk assessment performed?: Yes Alcohol Intake: never Drug use: Occasionally Substance use type: marijuana Number of Children: 1 Pets and animals: Yes (1) Pets and animals: cat(s) Current gender identity: female Do you feel safe at home: Yes Do you feel safe in your relationship?: Yes Exam Const General: no acute distress Orientation: alert HENMT Head: normal to inspection Ears: external ears normal General nose exam: external nose normal Mouth: moist mucous membranes Eyes General: appearance normal, both eyes and all related structures Neck Neck: normal visual inspection Resp Effort & Inspection: normal respiratory effort and able to speak in complete sentences Cardio Rate: regular rate Skin General skin exam: no rashes or lesions noted Neuro General: patient alert and patient oriented x3 Extrem General: normal to inspection Psych Mental Status: mental status grossly normal Course Vital Signs Vital signs: Vital Signs Temperature 36.5 C 02/24/22 10:13 Pulse 97 H 02/24/22 10:13 Respiratory Rate 18 02/24/22 10:13 Blood Pressure 141/77 H 02/24/22 10:13 Pulse Oximetry 98 02/24/22 10:13 Temperature 36.5 C 02/24/22 10:13 Temperature Source Temporal Artery Scan 02/24/22 10:13 Pulse 97 H 02/24/22 10:13 Respiratory Rate 18 02/24/22 10:13 Blood Pressure 141/77 H 02/24/22 10:13 Blood Pressure Position Sitting 02/24/22 10:13 Pulse Oximetry 98 02/24/22 10:13 Oxygen Delivery Method Room Air 02/24/22 10:13 Oxygen Flow Rate 0 02/24/22 10:13
[2022-02-24] MEDS: Ketorolac 30 MG/ML VIAL IM (10:34)
== END 2022-02-24 11:36 | disposition home or self-care (01) ==
PROVIDERS: Emergency Provider Emergency Medicine; PCP Family Medicine
DX: M25.511 Pain in right shoulder (principal); Z87.891 Personal history of nicotine dependence
CPT/HCPCS: 81025; 96372; 99284; 73030; J1885

== ENCOUNTER → 2022-07-03 01:22 | Outpatient (CLI) | payer MEDICAID, SELFPAY ==
--- NOTE | 2022-07-03 08:00 | DI.MRI_ITS ---
Exam(s) MR UPPER JOINT RT WO EXAM: MR UPPER JOINT RT WO CLINICAL HISTORY: CONTINUED PAIN,TENDINITIS,SCAPUOTHORACIC BURSITIS RT SHOULDER, M75.21,. TECHNIQUE: Multiplanar multisequence MRI was performed. COMPARISON: Plain films 24 February 2022 FINDINGS: BONES: No fracture contusion. Some red marrow reconversion reconversion frequently seen with obesity . JOINTS:The acromioclavicular joint is normal. The glenohumeral joint is normal. TENDONS: Supraspinatus: Unremarkable. Infraspinatus: Unremarkable. Subscapularis: Unremarkable. Teres Minor: Unremarkable. Biceps and [place]: Unremarkable. MUSCLES: Unremarkable. GLENOID LABRUM: Unremarkable on this noncontrast examination. SOFT TISSUES: Unremarkable. OTHER: Subacromial and subdeltoid bursae show no evidence of fluid.. IMPRESSION: Unremarkable MRI of the shoulder. DATA REPOSITORY:
== END ==
PROVIDERS: PCP Family Medicine; Visit Provider Student in an Organized Health Care Education/Training Program
DX: M75.21 Bicipital tendinitis, right shoulder (principal); M75.51 Bursitis of right shoulder
CPT/HCPCS: 73221

== ENCOUNTER 2022-08-12 11:32 | Outpatient (CLI) | payer MEDICARE, MEDICAID, SELFPAY ==
--- NOTE | 2022-08-12 11:15 | DI.RAD_ITS ---
Exam(s) XR KNEE RT 3V AP,LAT,SAJI EXAM: XR KNEE RT 3V AP,LAT,SAJI CLINICAL HISTORY: right knee pain. TECHNIQUE: 2D digital imaging was performed of the right knee. Three views obtained. Merchant, AP an d lateral views were obtained. COMPARISON: No exams were available for comparison FINDINGS: BONES: No acute fracture is present. No bony destructive lesion is seen. JOINTS: The knee is normally aligned. No joint effusion is seen. SOFT TISSUE: Normal. IMPRESSION: No acute abnormality. DATA REPOSITORY: RADIATION DOSE DELIVERED:
== END 2022-08-12 11:33 | disposition home or self-care (01) ==
LOC: DIORS 11:33
PROVIDERS: PCP Family Medicine; Referring Provider Family Medicine; Visit Provider Physician Assistant
DX: M25.361 Other instability, right knee (principal); S73.191A Other sprain of right hip, initial encounter; X58.XXXA Exposure to other specified factors, initial encounter
CPT/HCPCS: 73562; 99214

== ENCOUNTER 2022-09-09 01:47 | Outpatient (CLI) | payer MEDICARE, MEDICAID, SELFPAY ==
--- NOTE | 2022-09-09 07:50 | DI.MRI_ITS ---
Exam(s) MR LOWER JOINT RT WO EXAM: MR LOWER JOINT RT WO CLINICAL HISTORY: R KNEE PAIN,PATELLAR INSTABILITY, M25.361 TECHNIQUE: Multiplanar multisequence MRI of the knee was performed. COMPARISON: MR MRI RIGHT JOINT LOWER EXTR W/O CONTR from 12/13/2020 CR XR KNEE RT 3V AP,LAT,SAJI from 08/12/2022 FINDINGS: There is evidence of previous surgery again noted with fixation devices in the medial femoral condyle and medial aspect the patella. EFFUSION: There is no evidence of significant joint effusion or Chan cyst in the popliteal fossa. MARROW:No fractures evident. No subarticular edema. No osteochondral defects. Variant marrow signa l in the distal femur and proximal tibia are again noted. Also in the partially visualized upper fib osman PATELLOFEMORAL COMPARTMENT: The quadriceps tendon is intact. The patellar ligament is intact. Some thinning of the retropatellar cartilage is noted which is most prominent inferolaterally. No di stinct osteochondral defects. No degenerative subarticular cyst in the posterior patella. No intrao sseous signal to suggest recent patellar dislocation and there is no evidence of acute patellar retin acular tear.There is no intraosseous signal to suggest recent patellar dislocation. There are no horner llar retinacular tears. CRUCIATE LIGAMENTS: The anterior cruciate ligament is intact.The posterior cruciate ligament is intac t. MEDIAL COMPARTMENT/MEDIAL MENISCUS: There are no tears of the medial meniscus evident.There is only m inimal thinning of the cartilage over the medial femoral condyle.. There are no prominent chondral defects, osteochondral defects, subarticular marrow edema, nor osteop hytes evident. MEDIAL COLLATERAL LIGAMENT: No high-grade tear but there is some sprain signal interposed between the deep and superficial layers of the MCL. LATERAL COMPARTMENT/LATERAL MENISCUS: There is no evidence of lateral meniscal tear.There are no manuel dral defects, osteochondral defects, subarticular marrow edema, nor osteophytes evident. ILIOTIBIAL BAND: Intact LATERAL COLLATERAL LIGAMENT COMPLEX: The fibular collateral ligament is intact. The biceps femoris t endon is intact.Popliteus muscle and tendon are intact. IMPRESSION: 1. Mild findings as described above. Evidence of previous patellofemoral compartment surgery with ch annels in the medial patella and medial femoral condyle evident. Only mild changes in the retropatel lar cartilage lateral aspect. No osteochondral defects. No bone contusion or edema nor degenerative subarticular cysts evident in the patella nor in the femoral condyles. No osteophytes. 2. There are no meniscal tears and no cruciate ligament tears evident. 3. There is mild fluid interposed between the deep and superficial layers of the medial collateral li gament evident consistent with sprain of this structure. There is no high-grade tear of the MCL. Th ere are no significant abnormal findings in the components of the lateral collateral ligament complex nor in the iliotibial band. 4. Minimal if any significant degenerative change in the medial lateral compartments. 5. There is a minimal amount of increased joint fluid. No appreciable joint effusion and there is n o Chan cyst in the popliteal fossa. 6. Variant marrow signal in the distal femur, proximal tibia and fibula noted, unchanged from prior outside MRI study of December 2020. DATA REPOSITORY:
== END 2022-09-09 02:07 ==
PROVIDERS: PCP Family Medicine; Visit Provider Student in an Organized Health Care Education/Training Program
DX: M25.361 Other instability, right knee (principal)
CPT/HCPCS: 73721

== ENCOUNTER → 2022-09-17 09:19 | Outpatient (BNVA) | payer MEDICARE, MEDICAID, SELFPAY | PROVIDERS: PCP Family Medicine; Referring Provider Family Medicine; Visit Provider Student in an Organized Health Care Education/Training Program | DX: M22.41 Chondromalacia patellae, right knee (principal); M25.361 Other instability, right knee; M79.18 Myalgia, other site | CPT/HCPCS: 99214 ==

== ENCOUNTER 2022-12-19 00:31 | Outpatient (CLI) | payer MEDICARE, MEDICAID, SELFPAY ==
--- NOTE | 2022-12-19 09:00 | DI.CT_ITS ---
Exam(s) CT ABDOMEN PELVIS WO EXAM: CT ABDOMEN PELVIS WO CLINICAL HISTORY: DYSURIA, R30.0. TECHNIQUE: Imaging Protocol: Axial computed tomography images with coronal and sagittal reformatted images were created and reviewed. COMPARISON: CT CT ABDOMEN PELVIS W from 02/12/2021 FINDINGS: ABDOMEN: Lung Bases: Normal where visualized. Liver: Normal density. No measurable mass. Gallbladder and biliary tract: No radiodense calculus or biliary ductal dilation. Pancreas: Normal density, no abnormal calcifications or inflammatory process. Spleen: Normal. Kidneys: Normal size, contour and axis.No radiodense stones or obstructive uropathy. No masses seen. Adrenal glands: No mass is seen. Lymph nodes: Within normal limits. Abdominal Aorta: Abdominal portion non-dilated. PELVIS: Bladder:Symmetric distention, no gross wall thickening. Bowel: No obstruction or bowel wall thickening. Appendix is unremarkable. Peritoneal cavity: No ascites, collection or mesenteric inflammatory response. No free air. Reproductive organs: Unremarkable as visualized. Bones: Within normal limits. Soft Tissues: There is a small fat containing umbilical hernia. IMPRESSION: 1. No evidence of nephrolithiasis or hydronephrosis. 2. No acute abdominal pelvic process. RADIATION DOSE DELIVERED: 1,232.25mGy.cm Total DLP DATA REPOSITORY: All CT scans at this facility are submitted to the National Radiology Data Registry (NRDR) Dose Index Registry (DIR) with the [employer] (ACR). RADIATION OPTIMIZATION: All CT scans at this facility use at least one of these dose optimization te chniques: automated exposure control; mA and/or kV adjustment per patient size (includes targeted exa ms where dose is matched to clinical indication); or iterative reconstruction.
== END 2022-12-19 00:51 ==
LOC: DI 00:32
PROVIDERS: PCP Family Medicine; Visit Provider Family Medicine
DX: R30.0 Dysuria (principal)
CPT/HCPCS: 74176

== ENCOUNTER 2024-03-02 23:34 | Outpatient (REF) | payer MEDICARE, MEDICAID, SELFPAY ==
[2024-03-02 16:47] LABS: Abs Immature Grans 0.02 10^3/uL (0.0-0.06); Absolute Basophil Count 0.02 10^3/uL (0.0-0.2); Absolute Eosinophil Count 0.08 10^3/uL (0.0-0.7); Absolute Lymphocyte Count 1.52 10^3/uL (1.2-3.4); Absolute Monocyte Count 0.23 10^3/uL (0.1-0.8); Absolute Neutrophil Count 3.27 10^3/uL (1.2-6.7); Basophils % 0.4 %; Eosinophils % 1.6 %; HCT 39.4 % (36.0-46.0); HGB 13.3 g/dL (11.2-15.7); Immature Grans % 0.4 %; Lymphocytes % 29.6 %; MCHC 33.8 % (32.0-36.0); MCV 95 fL (80-95); Monocytes % 4.5 %; Neutrophils % 63.5 %; Platelet Count 168 10^3/uL (130-400); RBC 4.16 10^6/uL (3.93-5.22); RDW 13.1 % (11.7-14.6); RDW-SD 44.2 fL; WBC 5.14 10^3/uL (4.4-10.8)
[2024-03-02 17:25] LABS: ALT 22 U/L (14-59); AST 15 U/L (15-37); Albumin 3.9 g/dL (3.4-5.0); Alkaline Phosphatase 94 U/L (46-116); Anion Gap 7.8 mmol/L (3-11); BUN 8 mg/dL (7-18); Bilirubin, Total 1.56 mg/dL (0.2-1.0); CO2 31.2 mmol/L (21.0-32.0); CREATININE 0.9 mg/dL (0.55-1.02); Calcium 8.8 mg/dL (8.5-10.1); Calculated LDL 128 mg/dL (<100); Chloride 103 mmol/L (98-107); Cholesterol 198 mg/dL (<200); Estimated GFR 86.03 (mL/min/1.73m2); Glucose 96 mg/dL (74-106); HDL Cholesterol 49 mg/dL (40-60); Sodium 142 mmol/L (136-145); TSH (W/Ref FT4) 2.03 uIU/mL (0.36-3.74); Triglyceride 106 mg/dL (<150); Vitamin B12 587 pg/mL (193-986); Vitamin D 25 Total 21.4 ng/mL (30-100)
[2024-03-02 17:59] LABS: Hemoglobin A1C < 4.5 % (<5.7)
== END 2024-03-02 23:35 | disposition home or self-care (01) ==
LOC: LBN 23:34
PROVIDERS: PCP Family Medicine; Visit Provider Nurse Practitioner Family
DX: Z00.00 Encounter for general adult medical examination without abnormal findings (principal)
CPT/HCPCS: 80053; 80061; 82306; 82607; 83036; 84443; 85025

== ENCOUNTER 2024-04-20 14:33 | Outpatient (CLI) | payer MEDICARE, MEDICAID, SELFPAY ==
--- NOTE | 2024-04-20 09:30 | DI.RAD_ITS ---
Exam(s) XR HIP RT AP LAT ONLY EXAM: XR HIP RT AP LAT ONLY CLINICAL HISTORY: RIGHT HIP PAIN. TECHNIQUE: 2D digital imaging was performed. COMPARISON: CT CT ABDOMEN PELVIS W from 01/07/2021 MR MR RIGHT JNT LOW W/ CONTRAST from 01/17/2021 FINDINGS: Two views There is no evidence of fracture or dislocation nor right hip joint space narrowing. Bone density no rmal. No osseous lesions. No prominent osteophytes evident on the lateral view. Benign-appearing lucency is noted in the lateral aspect of the acetabulum. This was not evident prio rs CT images of the abdomen performed 01/07/2021. Correlation with any prior surgical procedure flakita mmended. IMPRESSION: As above. DATA REPOSITORY: RADIATION DOSE DELIVERED:
== END 2024-04-20 14:34 | disposition home or self-care (01) ==
LOC: DIORS 14:33
PROVIDERS: PCP Family Medicine; Referring Provider Family Medicine; Visit Provider Student in an Organized Health Care Education/Training Program
DX: S73.191D Other sprain of right hip, subsequent encounter; X58.XXXD Exposure to other specified factors, subsequent encounter; M79.18 Myalgia, other site
CPT/HCPCS: 99213; 73502

== ENCOUNTER 2024-05-30 01:36 | Outpatient (CLI) | payer MEDICARE, MEDICAID, SELFPAY ==
--- NOTE | 2024-05-30 07:45 | DI.MRI_ITS ---
Exam(s) MR LOWER JOINT RT W EXAM: MR LOWER JOINT RT W CLINICAL HISTORY: R HIP PAIN, ? LABRAL TEAR,s73.191A TECHNIQUE: Multiplanar multisequence MRI of the hip was performed. COMPARISON: MR MR RIGHT JNT LOW W/ CONTRAST from 01/17/[address] ABDOMEN PELVIS WO from 12/19/2022 FINDINGS: MARROW:There is no evidence of fracture, bone contusion, nor avascular necrosis. There is a benign-appearing T1 hyper intense bone lesion in the posterior right hip acetabulum which measures approximately 0 point 7 by 0.6 cm. This is probably an intraosseous hemangioma. There is no significant osseous excrescence at the femoral head-neck junction to suggest the presence of cam-type DARION. EFFUSION: Significant amount of the arthrogram contrast is seen along the needle tract in the right-s kang mahesh assess and rectus femorals and vastus muscle group BURSAE: There is no evidence of significant trochanteric bursitis. There is no evidence of iliopsoas bursitis. HIP JOINT SPACE: No obvious chondral defects no degenerative subarticular cysts and no osteophytes ev ident..There is no hypertrophy of the ligamentum teres nor signal abnormality at the fovea centralis. LABRUM: There is a partial-thickness tear of the anterior superior labrum. No evidence of paralabral cyst. TENDONS: No evidence of tendinitis nor tendon tears. ISCHIAL TUBEROSITY/HAMSTRING: There is no abnormal intraosseous signal in the ipsilateral ischial tub erosity nor tear of the common hamstrings tendon attachment site at this level. OTHER: There is no abnormal intramuscular signal within the quadratus femoris to suggest the presence of impingement syndrome at this level. There is a 2 cm cyst in the right ovary centrally noted. IMPRESSION: 1. Somewhat less than optimal arthrogram in that there is both intra and extra articular contrast, th e extra-articular contrast being along the course of the arthrogram needle. Nevertheless, there is s ufficient contrast within the joint space to demonstrate the presence of a partial thickness tear of the anterior superior labrum. 2. No evidence of obvious cam-type DARION. No obvious degenerative changes. 3. No abnormal marrow signal with the exception of a small benign intraosseous hemangioma in the post erior aspect of the right hip acetabulum. DATA REPOSITORY:
[2024-05-30] MEDS: Gadoterate meglumine 20 ML VIAL IVP (14:43)
[2024-05-30] MEDS: Normal Saline - Diluent 50 ML VIAL IJ (14:44)
[2024-05-30] MEDS: Bupivacaine 0.5% Pres-Free 10 ML VIAL 5 ML IJ (14:44)
[2024-05-30] MEDS: Omnipaque 300 MG/ML 10 ML BTL IJ (14:45)
--- NOTE | 2024-05-30 14:45 | DI.RAD_ITS ---
Exam(s) RF HIP ARTHRO RAD W CT OR MRI EXAM: RF HIP ARTHRO RAD W CT OR MRI CLINICAL HISTORY: LABRAL TEAR RT HIP, S73.191A. TECHNIQUE: 2D and realtime digital imaging was performed. CONTRAST MATERIAL: Oral barium Oral water soluble contrast was administered. COMPARISON: No exams were available for comparison FINDINGS: This pre MRI right hip arthrogram was performed at the request of the referring orthopedic surgeon. Patient was consented prior to this procedure. The patient was placed in the supine position the fluoroscopy table. Using sterile technique and adequate skin-subcutaneous anesthesia, fluoroscopic guidance was used to advance a 22 gauge spinal needle into the hip joint space at the junction of the femoral head and nec k. At this point a sterile solution of 12 cc of Omnipaque-300, preservative free saline, and Dotarem was injected via the indwelling needle. Although some of the contrast within the joint, it was observed significant amount of the contrast ap peared to spiral out of the articular joint space along the indwelling 22 gauge needle. Indwelling needle was removed and the patient transported to the MRI suite. See separate MRI report Patient tolerated this procedure well IMPRESSION: Somewhat less than optimal right hip pre MRI arthrogram. However, subsequent MRI sequences did revea l enough contrast in the articular joint space to demonstrate a labral tear (as per request). See separate hip MRI report RADIATION DOSE DELIVERED: carlos Hurtado=15mGy
--- NOTE | 2024-05-30 17:01 | DI.VRAD_ITS ---
PROCEDURE INFORMATION: Exam: MR Right Lower Extremity Joint With Contrast; Hip Exam date and time: 05/30/2024 2:42 PM Age: 33 years old Clinical indication: Right; Patient HX: R hip pain, ? labral tear TECHNIQUE: Imaging protocol: Magnetic resonance imaging of the right lower extremity joint with contrast. Exam focused on the hip. Contrast material: DOTAREM; Contrast volume: 0.2 ml; Contrast route: INTRA-ARTICULAR (ARTHROGRAM); COMPARISON: MR LOWER JOINT RT WO 09/09/2022 1:50 PM FINDINGS: Bones/joints: There is no acute fracture or dislocation or bone marrow contusion. There is a 0.7 cm T1 hyperintense lesion in the posterior right acetabulum with loss of signal fat and may represent small hemangioma. There is mild edema in the anterior capsule in the iliofemoral ligament. Labrum: There is subtle partial-thickness horizontal tear of the anterior superior labrum along the outer surface and interstitium of the labrum at the base of labrum (22 series 48979, 19 series 87630). TENDONS: Tendons of iliopsoas group: Unremarkable. No evidence of tear. Tendons of medial compartment of thigh: Unremarkable. No evidence of tear. Tendons of lateral rotators of hip: No evidence of tear. Tendons of gluteal group: No evidence of tear. Mildly increased signal noted in the gluteus medius tendon at the site of attachment to the greater trochanter suspicious of mild tendinopathy. Soft tissues: There is patchy contrast noted along the arthrogram needle tract in the right sartorius , rectus femoris, vastus lateralis and intermedius . Reproductive: There is 2.2 cm cyst in the right ovary and is likely a dominant follicle. IMPRESSION: 1. There is subtle partial thickness horizontal tear of the anterior superior labrum suspected along the outer surface and interstitium at the base. There is no definite extravasation of the contrast from the joint capsule to the to the extra articular region to suggest full-thickness tear 2. Mild high signal noted in the gluteus medius tendon at the attachment site of greater trochanter and may represent mild tendinopathy. There is no tear. Dictated and Authenticated by: Eliot Limon MD. Ordering:AALIYAH Carrillo MD
== END 2024-05-30 01:56 ==
PROVIDERS: PCP Family Medicine; Visit Provider Student in an Organized Health Care Education/Training Program
DX: S73.191D Other sprain of right hip, subsequent encounter (principal); X58.XXXD Exposure to other specified factors, subsequent encounter
CPT/HCPCS: 27093; 73525; 73722; J0665

== ENCOUNTER → 2024-06-01 10:40 | Outpatient (BNVA) | payer MEDICARE, MEDICAID, SELFPAY | PROVIDERS: PCP Family Medicine; Referring Provider Family Medicine; Visit Provider Student in an Organized Health Care Education/Training Program | DX: S73.191A Other sprain of right hip, initial encounter (principal); X58.XXXA Exposure to other specified factors, initial encounter; M79.18 Myalgia, other site | CPT/HCPCS: 99214 ==